=== PATIENT | male | born 1970 | race Caucasian/White ===

== ENCOUNTER 2016-10-06 15:10 | Inpatient (IN) | payer OTHER ==
[~2016-10-06] VITALS: Ht 175.3 cm; Wt 77.1 kg
[2016-10-06] VITALS (15 sets, daily range): BP systolic 121–170; BP diastolic 75–106
--- NOTE | 2016-10-06 17:19 | EKG ---
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
[2016-10-06] MEDS ORDERED: hydrALAZINE 20 MG/ML VIAL. IVP PRN (17:30)
[2016-10-06] MEDS ORDERED: ONDANSETRON PF 4 MG/2 ML VIAL. IV PRN (17:30)
[2016-10-06] MEDS ORDERED: ALBUTEROL SULFATE 2.5 MG/3 ML NEBU. NEB PRN (17:30)
[2016-10-06] MEDS ORDERED: ACETAMINOPHEN 325 MG TABLET. PO PRN (17:30)
[2016-10-06] MEDS ORDERED: MORPHINE SULFATE 2 MG/ML DISP.SYRIN. IV ONE (17:30)
--- NOTE | 2016-10-06 17:41 | PDOC1 ---
History and Physical Past Medical History Cardiovascular: CAD, HTN GI: GERD Past Surgical History Past Surgical History: CABG (2015) Family History Family History: Other (CAD) Social History Smoke: No ALCOHOL: rare Current Medications Current Medications Current Medications Medications (Trade) Dose Ordered Sig/Melinda Start Time Stop Time Status Last Admin Dose Admin Acetaminophen (Tylenol) 325 mg PRN Q6HRS PRN 10/06/16 17:30 Acetaminophen/ Hydrocodone Bitart (Lortab 5/325) 1 tab PRN Q6HRS PRN 10/06/16 17:30 Albuterol Sulfate (Ventolin Neb Soln) 2.5 mg PRN Q4HRS PRN 10/06/16 17:30 Hydralazine HCl (Apresoline) 10 mg PRN Q4HRS PRN 10/06/16 17:30 Morphine Sulfate 2 mg PRN Q2HR PRN 10/06/16 17:45 Nitroglycerin (Nitrostat) 0.4 mg PRN Q5MIN PRN 10/06/16 17:45 Ondansetron HCl (Zofran) 4 mg PRN Q8HRS PRN 10/06/16 17:30 Allergies Allergies Allergies Coded Allergies Type Severity Reaction Last Updated Verified Penicillins Allergy Intermediate 10/06/16 Yes ROS Review of System CONSTITUTIONAL: No fever or chills EYES: No recent changes SKIN: No rash or itching CARDIOVASCULAR: chest pain, NO syncope, palpitations, or edema RESPIRATORY: No SOB or cough GASTROINTESTINAL: No nausea, vomiting or abdominal pain NEUROLOGICAL: No headaches or weakness ENDOCRINE: No cold or heat intolerance GENITOURINARY: No urgency or frequency of urination MUSCULOSKELETAL: No back pain or joint pain LYMPHATICS: No enlarged lymph nodes PSYCHIATRIC: No anxiety or depression Physical Exam Physical Exam GEN.: No apparent distress. Alert and oriented. HEENT: Head is normocephalic, atraumatic NECK: Supple. NO JVD LUNGS: Clear to auscultation. Normal airflow HEART: RRR, S1, S2 present. Peripheral pulses intact ABDOMEN: Soft, nontender. Positive bowel sounds. EXTREMITIES: Without any cyanosis. NEUROLOGIC: Normal speech, normal tone PSYCHIATRIC: Normal affect, normal mood. SKIN: No ulcerations Vitals Vitals Vital Signs Date Time Temp Pulse Resp B/P Pulse Ox O2 Delivery O2 Flow Rate FiO2 10/06/16 17:30 20 97 Room Air VTE Prophylaxis Ordered VTE Prophylaxis Devices: Yes VTE Pharmacological Prophylaxi: Yes NIKKI LIVE MD Oct 06, 2016 17:40
[2016-10-06] MEDS ORDERED: NITROGLYCERIN SUBLINGUAL 0.4 MG BOTTLE OF 25. SL PRN (17:45)
[2016-10-06] MEDS ORDERED: MORPHINE SULFATE 2 MG/ML DISP.SYRIN. IV PRN (17:45)
[2016-10-06] MEDS ORDERED: PRASUGREL 10 MG TABLET. PO ONE (19:15)
[2016-10-06] MEDS ORDERED: NITROGLYCERIN PREMIX 250 ML IV PRN (19:15)
--- NOTE | 2016-10-06 19:41 | HP ---
ADMIT DATE: 10/06/2016 CHIEF COMPLAINT: Chest pain. HISTORY OF PRESENT ILLNESS: A 46-year-old male patient with prior history of coronary artery disease 2003 and CABG August 2016 presented to [facility] with complaints of chest pain, noted this morning around 10:30 a.m., described it as left upper extremity pain and presented there for constantly and is getting better with nitro and also with morphine. After CABG surgery in August, the patient felt pretty good and denies any symptoms. Symptoms noted at rest. Initial EKG at [facility] showed some T-wave inversions in lateral leads; however, I could not able to confirm and repeat EKG at [place] showed T-wave inversions in lateral leads, in aVF, in lead 2. At the time of my examination, the patient says he still feels some pain, but is getting better with morphine and denies any other symptoms such as palpitations or shortness of breath. PAST MEDICAL HISTORY, REVIEW OF SYSTEMS, PHYSICAL EXAMINATION: Please see my electronic H and P. ASSESSMENT: 1. Unstable angina, present on admission 2. Coronary artery disease with CABG x 2015. 3. Hypertension. 4. Hyperlipidemia. 5. Gastroesophageal reflux disease. 6. Questionable depression. PLAN: 1. The patient currently admitted to critical care unit. He already received Lovenox in [place] [facility]. I am waiting for his second set of troponins and will consult cardiology and start him on either heparin gtt for ACS protocol or take him to cardiac catheterization. Repeat EKG reviewed personally, review showed some T-wave inversions in lateral leads and inferior leads. 2. Resume home medications. 3. Telemetry. 4. Blood pressure control. 5. P.r.n. morphine for pain control with p.r.n. nitro. 6. Plan d/w RN, 7. Home medication reviewed. NIKKI LIVE MD DR: TRINIDAD/gemma JOB#: [id number] / [id number] CHRISTINA
[2016-10-07] VITALS (29 sets, daily range): BP systolic 98–151; BP diastolic 8–89
[2016-10-07 03:48] LABS: BASO % 1 % (0-3); EOS % 2 % (0-3); HEMATOCRIT 34.5 % (39.0-53.0); HEMOGLOBIN 11.7 g/dL (13.0-17.5); LYMPH # 1.7 x10^3/uL (1.0-4.8); LYMPH % 25 % (24-48); MEAN CORPUSCULAR HEMOGLOBIN 31 pg (25-35); MEAN CORPUSCULAR HGB CONC 34 g/dL (31-37); MEAN CORPUSCULAR VOLUME 92 fL (79-100); MONO % 9 % (0-9); NEUT % 64 % (31-73); PLATELET COUNT 209 x10^3/uL (140-400); RED BLOOD COUNT 3.76 x10^6/uL (4.30-5.70); RED CELL DISTRIBUTION WIDTH 13.7 % (11.5-14.5); WHITE BLOOD COUNT 6.9 x10^3/uL (4.0-11.0)
[2016-10-07 04:11] LABS: CALCIUM 8.8 mg/dL (8.5-10.1); CREATININE 1.1 mg/dL (0.7-1.3); GFR 72.4; POTASSIUM 3.9 mmol/L (3.5-5.1)
[2016-10-07] MEDS ORDERED: IODIXANOL 320 MG/ML 100 ML VIAL. ONE ×2 (07:20→08:50)
[2016-10-07] MEDS ORDERED: LIDOCAINE 2% 20 ML VIAL. ONE (07:20)
[2016-10-07] MEDS ORDERED: HEPARIN for ARTERIAL LINE 1,500 ML ONE (07:20)
--- NOTE | 2016-10-07 07:38 | ACF ---
Admission Forms Criteria INTENSIVE CARE UNIT ADMISSION Intensive Care Admission Guidelines ( Place 'X' for any and all applicable criteria): Admission to ICU may be indicated when need is demonstrated by ANY ONE of the following (1)(2)(3)(4)(5)(6)(7)(8)(9) : [ ]I. Vital sign abnormalities, including ANY ONE of the following: [ ]a) Systolic arterial pressure less than 90 mm Hg, or 20 mm Hg below the patient's usual pressure [ ]b) Diastolic arterial pressure greater than 120 mm Hg [ ]c) Mean arterial pressure less than 70 mm Hg [A] [ ]d) Pulse less than 40 or greater than 140 beats per minute (in adult) [ ]e) Respiratory rate greater than 35 or less than 8 breaths per minute [ ]II. Laboratory findings (new), including ANY ONE of the following (10): [ ]a) Saturation of arterial oxygen less than 88% or partial pressure of oxygen less than 60 mm Hg (8.0 kPa) despite oxygen supplementation [ ]b) Rising partial pressure of carbon dioxide with respiratory acidosis [ ]c) pH less than 7.2 or greater than 7.65 [ ]d) Serum glucose greater than 800 mg/dL (44.4 mmol/L) [ ]e) Serum sodium less than 110 mEq/L (mmol/L) or greater than 160 mEq/L (mmol/L) [ ]f) Serum potassium less than 2 mEq/L (mmol/L) or greater than 7 mEq /L (mmol/L) [ ]g) Serum calcium greater than 15 mg/dL (3.75 mmol/L) [ ]h) Serum phosphorus less than 1 mg/dL (0.32 mmol/L) [ ]i) Toxic drug level or poisoning causing or likely to cause neurologic or Hemodynamic instability [ ]j) Less severe laboratory abnormalities contributing to ANY ONE of the following: [ ]i) Seizure [ ]ii) Altered mental status [ ]iii) Muscle weakness [ ]iv) Arrhythmias [ ]v) Hemodynamic instability [ ]vi) Other significant clinical manifestations [X]III. Electrocardiogram (or cardiac monitoring) findings, including ANY ONE of the following: [ ]a) Inherently unstable or life-threatening arrhythmia (eg, sustained ventricular tachycardia, ventricular fibrillation, asystole) [ ]b) Arrhythmia causing severe hypotension (eg, bradycardia, tachycardia) [ ]c) Complete heart block causing severe hypotension [X]d) Other findings indicative of a need for intensive care (eg , NH) [ ]IV.Physical findings, including ANY ONE of the following: [ ]a) Threatened airway [ ]b) Sudden altered mental status [ ]c) Repeated or prolonged seizures [ ]d) Coma [ ]e) New-onset anuria (urine output <0.1 mL/kg/hr over 4 h) [ ]f) Cyanosis (new) [ ]g) Cardiac tamponade [ ]h) Status post respiratory or cardiac arrest [ ]i) Severe amador (eg, partial thickness amador over more than 10% of body surface, third-degree amador) [ ]j) Findings consistent with abdominal emergency (eg, peritoneal signs) [ ]V.Imaging findings, such as dissecting aneurysm or ruptured viscus [ ].Specific intervention or monitoring needed, as indicated by ANY ONE of the following: [ ]a) New need for assisted ventilation, invasive or noninvasive(11) [ ]b) New need for intubation (eg, to protect airway) [ ]c) New tracheostomy (less than 48 hours old) [ ]d) Hourly vital signs or neurologic checks [ ]e) Pulmonary artery line monitoring needed [ ]f) Continuous arterial line monitoring needed [ ]g) Continuous IV vasoactive drugs [ ]h) Continuous IV antiarrhythmics [ ]i) Large volume IV fluid resuscitation (eg, greater than 6 L per day ) [ ]j) Large or rapid transfusion needs (eg, more than 6 units within 24 hours) [ ]k) High-risk IV treatment, such as bolus IV medicatns or mannitol infusion [ ]l) Acute cardiac pacing [ ]m) Intra-aortic balloon pump [ ]n) Ventricular assist device [ ]o) Cardioversion [ ]p) Pericardiocentesis [ ]q) Hemodialysis in unstable patient [ ]r) Continuous renal replacement therapy (eg, continuous veno-venous hemofiltration) [ ]s) Peritoneal dialysis initiation [ ]t) Emergency bronchoscopic therapy (eg, for hemoptysis) [ ]u) Emergency endoscopic therapy for bleeding [ ]v) Balloon tamponade for variceal bleeding [ ]w) Intracranial pressure monitoring or tissue oxygen monitoring [ ]x) Ventriculostomy monitoring [ ]y) Treatment of ongoing seizures [ ]z) Induced hypothermia or coma [ ]aa) Ongoing frequent testing and treatment for acute conditions, including ANY ONE of the following: [ ]i) Correction of severe metabolic acidosis/ alkalosis [ ]ii). Severe fluid overload [ ]iii) Cerebral edema [ ]iv) Monitoring or suctioning for respiratory insufficiency or acidosis [ ]v) Monitoring for active bleeding [ ]bb) Rapid desensitization for high-risk hypersensitivity reaction to required medication (eg, penicillin)(12) [ ]cc) Other need for treatment or monitoring not available outside the ICU [ ]VII.Cardiology diagnoses or procedures, including ANY ONE of the following (13)(14)(15)(16)(17): [ ]a) Chest pain with ANY ONE of the following: [ ]i) Hemodynamic instability [ ]ii) Suspicion of diagnoses needing ICU care (eg, aortic dissection) [ ]iii) New unstable or symptomatic arrhythmia or ECG finding (eg, ventricular tachycardia, ventricular fibrillation, advanced heart block) [ ]iv) Syncope or near-syncope [ ]v) SBP less than 100 mm Hg [ ]vi) Pulmonary edema thought to be due to ischemia [ ]vii) New or worsening mitral regurgitation murmur, S3 , or rales [ ]b) Acute NH with complications as indicated by ANY ONE of the following: [ ]i) Persistent chest pain [ ]ii) Hemodynamic instability [ ]iii) New unstable or symptomatic arrhythmia or ECG finding (eg, ventricular tachycardia, ventricular fibrillation, advanced heart block) [ ]iv) Syncope or near-syncope [ ]v) Pulmonary edema thought to be due to ischemia [ ]vi) New or worsening mitral regurgitation murmur, S3 , or rales [ ]vii) New-onset bundle branch block [ ]viii) Hemorrhagic complication (eg, intracranial or access site bleed following thrombolysis) [ ]c) Cardiac arrhythmia or conduction defect with Hemodynamic instability [ ]d) Complication of cardiac ablation, including ANY ONE of the following(18): [ ]i) Pericardial tamponade [ ]ii) Hemodynamic instability [ ]iii) Thromboembolic stroke [ ]iv) Aortic valve injury [ ]v) Vascular injuries [ ]vi) Esophageal perforation [ ]vii) Severe arrhythmia [ ]viii) Air embolism [ ]ix) Other severe complication [ ]e) Cardiogenic shock [ ]f) Hypertensive emergency, with need for ANY ONE of the following(19): [ ]i) IV antihypertensive therapy [ ]ii) Invasive hemodynamic monitoring (eg, arterial line) [ ]g) Pericardial tamponade [ ]h) Severe heart failure, with ANY ONE of the following(15): [ ]i) Respiratory failure [ ]ii) Cardiogenic shock [ ]iii) Severe arrhythmias [ ]iv) Evidence of cardiac ischemia [ ]i Myocarditis, with ANY ONE of the following [ ]i) Hemodynamic instability [ ]ii) Respiratory failure [ ]iii) Severe arrhythmias [ ]iv) Need for cardiac assist device (eg, left ventricular assist device or extracorporeal membrane oxygenator) [ ]j) Status post cardiac arrest(20) [ ]VIII. Cardiovascular Surgery diagnoses or procedures, including ANY ONE of the following.(21)(22): [ ]a) Acute aortic dissection [ ]b) Aortic surgery for ANY ONE of the following: [ ]i) Thoracic aneurysm [ ]ii) Abdominal aneurysm with ANY ONE of the following(23): [ ]1) Emergency repair [ ]2) Severe cardiopulmonary disease [ ]3) Dialysis-dependent renal failure [ ]4) Need for IV blood pressure control [ ]5) Need for ongoing ventilatory support [ ]6) Perioperative complications, including ANY ONE of the following: [ ]A. Sustained Hemodynamic instability [ ]B. Cardiac ischemia or arrhythmia [ ]C. Hypothermia (less than 35 degrees C (95 degrees F)) [ ]D. Blood transfusion greater than 3 L [ ]iii) Aortic coarctation operative excision or repair [ ]iv) Aortofemoral or aortoiliac bypass with ANY ONE of the following: [ ]1) Continued intubation [ ]2) Hemodynamic instability [ ]3) Need for IV blood pressure control [ ]4) Severe cardiopulmonary disease [ ]c) Cardiac surgery [ ]d) Carotid endarterectomy or stent placement with ANY ONE of the following: [ ]i) Blood pressure <100/60 mm Hg or >160/90 mm Hg despite 4 h of postanesthetic management [ ]ii) New or progressive neurologic defect [ ]iii) Chest pain [ ]iv) Continued intubation [ ]v) Heart failure [ ]vi) Airway compromise by hematoma or vocal cord paralysis [ ]vi) Need for IV blood pressure control [ ]e) Heart transplant [ ]f) Infrainguinal peripheral vascular surgery with ANY ONE of the following: [ ]i) Hemodynamic instability [ ]ii) Acute complications such as persistent chest pain or respiratory distress [ ]iii) Requirement for IV antiarrhythmic or vasoactive agent [ ]iv) Requirement for pulmonary artery catheter [ ]v) Severe hypertension despite 6 hours of recovery room management [ ]g) Complications of any surgery requiring ICU intervention as indicated by ANY ONE of the following(24): [ ]i) Hemodynamic instability [ ]ii) Myocardial infarction with complications (eg, severe arrhythmia, hypotension) [ ]iii) Excessive bleeding or severe coagulopathy [ ]iv) Respiratory failure [ ]v) Renal failure [ ]vi) Airway instability or obstruction [ ]vii) Neurologic deterioration [ ]viii) Infection with likelihood of sepsis syndrome or significant fluid shifts [ ]IX.Endocrinology diagnoses or procedures, including ANY ONE of the following(25)(26): [ ]a) Adrenal crisis with Hemodynamic instability(27) [ ]b) Pheochromocytoma with ANY ONE of the following(28): [ ]i) Hypertensive crisis [ ]ii) Postoperative Hemodynamic instability [ ]iii) Need for IV vasoactive therapy [ ]iv) Need for invasive arterial or central venous pressure monitoring [ ]v) Organ ischemia [ ]c) Diabetic hyperosmolar state with obtundation or coma [ ]d) Diabetic ketoacidosis with ANY ONE of the following: [ ]i) Serum pH less than 7.10 or bicarbonate level less than 10 mEq/L (mmol/L) [ ]ii) Rapidly changing electrolytes [ ]iii) Hypotension [ ]iv) Requirement for large-volume fluid resuscitation [ ]v) Respiratory insufficiency [ ]vi) Life-threatening cardiac dysrhythmias [ ]vii) Obtundation [ ]viii) Severe precipitating condition such as sepsis, stroke, or acute NH [ ]e) Severe hypoglycemia requiring continuous glucose infusion with frequent adjustment or glucagon infusion [ ]f) Hyperthyroidism associated with thyroid storm (also known as thyrotoxic crisis)(29) [ ]g) Myxedema with life-threatening neurologic, cardiovascular, electrolyte, or renal dysfunction(29) [ ]h) Diabetes insipidus that cannot be controlled with routine medication (30) [ ]X. Gastroenterology diagnoses or procedures, including ANY ONE of the following: [ ]a) Esophageal perforation(31) [ ]b) Severe caustic esophageal injury(31) [ ]c) Liver disease complications with ANY ONE of the following(32): [ ]i) Severe hepatic encephalopathy (eg, stage 3 (somnolent) or higher) [ ]ii) Type 1 hepatorenal syndrome [ ]iii) Other cirrhosis-associated causes of acute renal failure ( eg, severe hypovolemia, acute tubular necrosis, abdominal compartment syndrome) [ ]iv) Hemodynamic instability [ ]v) Respiratory insufficiency due to severe ascites [ ]vi) Sepsis due to spontaneous bacterial peritonitis [ ]d) Fulminant hepatic failure when aggressive intervention or transplant is anticipated (32) [ ]e) Gastrointestinal hemorrhage (upper or lower) with ANY ONE of the following(33)(34): [ ]i) Active ongoing bleeding [ ]ii) Transfusion requirement greater than 2 units of packed red cells [ ]iii) Bleeding ulcer or nonbleeding visible vessel seen on endoscopy [ ]iv) Bleeding ulcer, visible blood vessel, bleeding (or recently bleeding) esophageal varices seen on endoscopy [ ]v) Hypotension [ ]vi) Syncope [ ]vii) Coagulopathy [ ]viii) Hepatic cirrhosis [ ]ix) Abnormal mental status [ ]x) Unstable comorbid condition or end organ dysfunction [ ]xi) Ischemia due to poor perfusion [ ]xii) Need for hemodynamic monitoring (eg, for patients with heart failure or valvular disease) [ ]f) Severe pancreatitis indicated by ANY ONE of the following (35)(36): [ ]i) Requirement for aggressive fluid resuscitation [ ]ii) Life-threatening electrolyte abnormality [ ]iii) SBP less than 90 mm Hg [ ]iv) Persistent tachycardia greater than 120 beats per minute [ ]v) Patients at high risk of rapid deterioration, including ANY ONE of the following: [ ]1) Calculated [place] II score greater than 8 [ ]2) Age older than 55 years [ ]3) BMI greater than 30 [ ]4) Greater than 30% pancreatic necrosis on CT scan [ ]5) Admission hematocrit greater than 47% (0.47) [ ]vi) Organ failure as indicated by ANY ONE of the following: [ ]1) Serum creatinine greater than 1.9 mg/dL (168 micromoles/L) [ ]2) Requirement for mechanical ventilation [ ]3) Urine output less than 50 mL/hour [ ]4) Arterial partial pressure of oxygen less than 60 mm Hg (8.0 kPa) despite supplemental oxygen [ ]5) PiO2/FiO2 ratio less than 300 [ ]vii) Expanding pseudocyst [ ]viii) Infected pancreas [ ]ix) Pleural effusion [ ]x) Encephalopathy [ ]xi) Severe comorbidities [ ]XI. General Surgery diagnoses or procedures, including ANY ONE of the following (9)(24)(37): [ ]a) Acute abdominal catastrophe (eg, ischemic bowel, perforated viscus, abdominal compartment syndrome) [ ]b) Complications of any surgery requiring ICU intervention as indicated by ANY ONE of the following: [ ]i) Hemodynamic instability [ ]ii) NH with complications (eg, severe arrhythmia, hypotension) [ ]iii) Excessive bleeding or severe coagulopathy [ ]iv) Respiratory failure [ ]v) Renal failure [ ]vi) Airway instability or obstruction [ ]vii) Neurologic deterioration [ ]viii) Infection with likelihood of sepsis syndrome or significant fluid shifts [ ]c) Multiple trauma with complicating features as indicated by ANY ONE of the following(38): [ ]i) Impending acute respiratory failure due to lung contusion, unstable chest wall, aspiration, or hemorrhage [ ]ii) Facial or neck injury threatening airway patency [ ]iii) Cardiac contusion [ ]iv) Pericardial effusion [ ]v) Bronchial tear [ ]vi) Hemodynamic instability [ ]vii) Rhabdomyolisis requiring large volume IV fluid resuscitation [ ]viii)Other significant complicating feature [ ]d) Organ transplant(39)(40) [ ]e) Esophagectomy(31) [ ]f) Whipple procedure [ ]g) Preoperative or postoperative patients requiring ICU intervention, such as hemodynamic optimization, pulmonary artery monitoring, mechanical ventilation, or extensive nursing care [ ]h) Obesity surgery patients with ANY ONE of the following(41): [ ]i) ICU management needs for comorbid conditions, such as sleep apnea or airway management needs [ ]ii) Failed postoperative extubation [ ]iii) Intraoperative complications [ ]XII. Nephrology diagnoses or procedures, including acute, or acute on chronic renal insufficiency with ANY ONE of the following(44)(45): [ ]a) Life-threatening electrolyte or acid-base disorder [ ]b) Acute pulmonary edema [ ]c) Hypotension or significant volume depletion [ ]d) Hypertensive emergency [ ]e) Underlying critical illness contributing to renal failure (eg, septic shock, hepatorenal syndrome) [ ]f) Need for continuous renal replacement therapy [ ]XIII. Neurology diagnoses or procedures, including ANY ONE of the following (46)(47) [B] : [ ]a) Intracranial hypertension requiring ANY ONE of the following(49 ): [ ]i) Induced barbiturate coma [ ]ii) Pharmacologic paralysis or deep sedation and mechanical ventilation [ ]iii) Intracranial pressure or cerebral perfusion pressure monitoring [ ]iv) IV mannitol or hypertonic saline [ ]v) Frequent serum osmolality measurements [ ]b) Seizures with ANY ONE of the following(50): [ ]i) Status epilepticus [ ]ii) Airway compromise requiring or likely to require mechanical ventilation [ ]iii) Severe electrolyte abnormalities causing seizures [ ]c) Progressive acute neurologic dysfunction requiring or likely to require ANY ONE of the following: [ ]i) Mechanical ventilation [ ]ii) Intracranial pressure or cerebral perfusion pressure monitoring [ ]d) Meningitis with obtundation or respiratory insufficiency [C])(51 ) [ ]e) Stroke with ANY ONE of the following(52)(53): [ ]i) Need for observation after thrombolysis [ ]ii) Altered mental status [ ]iii) Need for mechanical ventilation [ ]iv) Elevated intracranial pressure [ ]v) Hypertensive emergency [ ]vi) High risk of progressive infarction or deterioration based on CT scan or MRI [ ]vii) Hemorrhage [ ]f) Acute coma [ ]g) Acute spontaneous intracranial hemorrhage(53)(54) [ ]h) Drug ingestion with ANY ONE of the following(56)(57): [ ]i) Hemodynamic instability [ ]ii) Respiratory depression (partial pressure of carbon dioxide >45 mm Hg (6.0 kPa), new) [ ]iii) Patient requires or is likely to require mechanical ventilation. [ ]iv) Arrhythmias [ ]v) Seizures [ ]vi) Altered mental status (Mona coma scale score less than 12, new) [ ]vii) Significant risk for acute deterioration (eg, toxic level of hypotension or arrhythmia-producing drug) [ ]viii) Drug-induced hypothermia or hyperthermia [ ]ix) Increasing metabolic acidosis [ ]x) Severe hypoglycemia requiring glucose infusion with frequent adjustment or glucagon administration [ ]xi) Ongoing antidote administration (eg, continuous naloxone infusion, organophosphate toxicity treatment) [ ]xii) Emergency intervention need (eg, dialysis, hemoperfusion, restraints) [ ]i) Brain with preparation for organ donation [ ]j) Traumatic brain injury with ANY ONE of the following(55): [ ]i) Altered mental status (eg, new onset Lucy coma scale score less than 10) [ ]ii) Cerebral edema [ ]iii) Cerebral hemorrhage [ ]iv) Increased intracranial pressure [ ]XIV. Neurosurgery diagnoses or procedures, including ANY ONE of the following(49)(58)(59): [ ]a) Emergency craniotomy for tumor, hematoma, or trauma [ ]b) Elective craniotomy for posterior fossa tumor [ ]c) Elective craniotomy (supratentorial) for tumor with ANY ONE of the following: [ ]i) Postoperative neurologic deficit or impaired consciousness 6 hours after completion of procedure [ ]ii) SBP less than 110 mm Hg or greater than 180 mm Hg despite therapy [ ]iii) Extensive operative blood loss [ ]iv) High anesthesia risk (eg, [place] [employer] score greater than 3 [ ]d) Craniotomy for aneurysm with ANY ONE of the following: [ ]i) Postoperative neurologic deficit or impaired consciousness 6 hours after completion of procedure [ ]ii) Preoperative Levy-Sanchez grade 3 or higher [ ]iii) SBP less than 110 mm Hg or greater than 180 mm Hg despite therapy [ ]iv) Intracranial pressure monitoring [ ]e) Acute spinal cord injury [ ]f) Subarachnoid hemorrhage [ ]g) Traumatic brain injury with ANY ONE of the following: [ ]i) Acute mental status change (Lucy coma scale score less than 10) [ ]ii) CT scan showing cerebral edema or hemorrhage [ ]iii) Intracranial pressure monitoring [ ]h) Complications of any surgery requiring ICU intervention as indicated by ANY ONE of the following(60): [ ]i) Hemodynamic instability [ ]ii) NH with complications (eg, severe arrhythmia, hypotension) [ ]iii) Excessive bleeding or severe coagulopathy [ ]iv) Respiratory failure [ ] v) Renal failure [ ]vi) Airway instability or obstruction [ ]vii) Neurologic deterioration [ ]viii) Infection with likelihood of sepsis syndrome or significant fluid shifts [ ]i) Preoperative or postoperative patients requiring ICU intervention, such as hemodynamic optimization, pulmonary artery monitoring, mechanical ventilation, or extensive nursing care [ ]XV.Obstetrics and Gynecology diagnoses or procedures, including ANY ONE of the ffg. (61)(62)(63): [ ]a) Severe peripartum condition as indicated by ANY ONE of the following: [ ]i) Eclampsia [ ]ii) Hypertensive emergency [ ]iii) HELLP syndrome (hemolysis, elevated liver enzymes, and low platelet count) [ ]iv) Pulmonary edema [ ]v) Respiratory failure [ ]vi) Pulmonary embolism [ ]vii) Anaphylactoid syndrome of (amniotic fluid embolus) [ ]viii) Ovarian hyperstimulation syndrome [D] [ ]ix) Acute fatty liver of (hepatic failure) [ ]x) Complications such as placental abruption or severe hemorrhage [ ]xi) Sepsis (eg, puerperal sepsis, chorioamnionitis, septic ) [ ]xii) cardiomyopathy with severe congestive heart failure (eg, respiratory failure, cardiogenic shock) [ ]b) Ruptured ectopic [ ]c) Complications of any surgery requiring ICU intervention as indicated by ANY ONE of the following: [ ]i) Hemodynamic instability [ ]ii) NH with complications (eg, severe arrhythmia, hypotension) [ ]iii) Excessive bleeding or severe coagulopathy [ ]iv) Respiratory failure [ ]v) Renal failure [ ]vi) Airway instability or obstruction [ ]vii) Neurologic deterioration [ ]viii) Infection with likelihood of sepsis syndrome or significant fluid shifts [ ]d) Preoperative or postoperative patients requiring ICU intervention , such as hemodynamic optimization, pulmonary artery monitoring, mechanical ventilation, or extensive nursing care [ ]XVI.Ophthalmology diagnoses or procedures, including ANY ONE of the following (64): [ ]a) Complications of any surgery requiring ICU intervention, such as ANY ONE of the following: [ ]i) Hemodynamic instability [ ]ii) NH with complications (eg, severe arrhythmia, hypotension) [ ]iii) Excessive bleeding or severe coagulopathy [ ]iv) Respiratory failure [ ]v) Renal failure [ ]vi) Airway instability or obstruction [ ]vii) Neurologic deterioration [ ]viii) Infection with likelihood of sepsis syndrome or significant fluid shifts [ ]b) Preoperative or postoperative patients requiring ICU intervention , such as hemodynamic optimization, pulmonary artery monitoring, mechanical ventilation, or extensive nursing care [ ]XVII.Orthopedics diagnoses or procedures, including ANY ONE of the following [phone]): [ ]a) Complications of any surgery requiring ICU intervention as indicated by ANY ONE of the following: [ ]i) Hemodynamic instability [ ]ii) NH with complications (eg, severe arrhythmia, hypotension) [ ]iii) Excessive bleeding or severe coagulopathy [ ]iv) Respiratory failure [ ]v) Renal failure [ ]vi) Airway instability or obstruction [ ] vii) Neurologic deterioration [ ]viii) Infection with likelihood of sepsis syndrome or significant fluid shifts [ ]b) Multiple trauma with complicating features as indicated by ANY ONE of the following(38): [ ]i) Impending acute respiratory failure due to lung contusion, unstable chest wall, pneumothorax, aspiration, or hemorrhage [ ]ii) Facial or neck injury threatening airway patency [ ]iii) Cardiac contusion [ ]iv) Rhabdomyolysis requiring large volume IV fluid resuscitation [ ]v) Pericardial effusion [ ]vi) Bronchial tear [ ]vii) Hemodynamic instability [ ]viii) Other significant complicating feature [ ]c) Threatened compartment syndrome [ ]d) Severe amador with ANY ONE of the following(68)(69)(70): [ ]i) Hypotension or requirement for aggressive fluid resuscitation [ ]ii) Respiratory insufficiency with requirement for high- flow oxygen or mechanical ventilation [ ]iii) Carbon monoxide poisoning [ ]iv) Life-threatening cardiac, renal, pulmonary, or neurologic dysfunction [ ]v) High-voltage (eg, 1000 volts or more) electrical burn [ ]vi) Requirement for frequent or intensive debridement and dressing changes; examples include: [ ]1) Partial thickness amador greater than 10% of body surface [ ]2) Amador on face, hands, feet, genitalia, perineum , or major joints [ ]3) Third-degree amador [ ]4) Any burn greater than 15% of body surface area [ ]vii) Inhalation lung injury [ ]viii) Concomitant trauma or other medical condition requiring ICU care [ ]e) Preoperative or postoperative patients requiring ICU intervention , such as hemodynamic optimization, pulmonary artery monitoring, mechanical ventilation, or extensive nursing care [ ]XVIII.Otolaryngology diagnoses or procedures, including ANY ONE of the following (71)(72): [ ]a) Complications of any surgery requiring ICU intervention as indicated by ANY ONE of the following: [ ]i) Hemodynamic instability [ ]ii) NH with complications (eg, severe arrhythmia, hypotension) [ ]iii) Excessive bleeding or severe coagulopathy [ ]iv) Respiratory failure [ ]v) Renal failure [ ]vi) Airway instability or obstruction [ ]vii) Neurologic deterioration [ ]viii) Infection with likelihood of sepsis syndrome or significant fluid shifts [ ]b) Airway or hemodynamic compromise that persists after 3 hours of observation in postanesthesia care unit following nasal, palate (eg, uvulopalatopharyngoplasty or palatoplasty), or tongue surgery for sleep apnea [ ]c) Preoperative or postoperative patient requiring ICU intervention, such as hemodynamic optimization, pulmonary artery monitoring, mechanical ventilation, or extensive nursing care [ ]d) Symptomatic upper airway compromise (eg, laryngeal edema, mass) [ ]e) Other airway-compromising procedure (eg, posterior nasal packing) [ ]XIX.Thoracic Surgery and Pulmonary Disease Diagnosis or procedures, including ANY ONE of the following(6): [ ]a) Asthma with ANY ONE of the following(73)(74): [ ]i) Impending or actual respiratory arrest [ ]ii) Need for mechanical ventilation [ ]iii) Peak expiratory flow rate less than 30% of predicted or personal best [ ]iv) Peak expiratory flow rate or FEV1 less than 40% predicted after 1 hour of initial treatment [ ]v) Acidosis [ ]vi) Persistent or worsening hypoxia after initial treatment [ ]vii) Hypercapnia (eg, partial pressure of carbon dioxide greater than 43 mm Hg (5.7 kPa)) [ ]viii) Severe drowsiness, confusion, or coma [ ]ix) Requiring continuous inhaled bronchodilator [ ]b) COPD with ANY ONE of the following(75): [ ]i) Need for assisted ventilation [ ]ii) Hemodynamic instability [ ]iii) Severe dyspnea unresponsive to initial treatment [ ]iv) Change in level of consciousness [ ]v) Persistent findings despite oxygen and outpatient management, including ANY ONE of the following: [ ]1) Partial pressure of oxygen less than 40 mm Hg ( 5.3 kPa) [ ]2) Partial pressure of carbon dioxide greater than 60 mm Hg (8.0 kPa) [ ]3) pH less than 7.25 [ ]4) Worsening hypoxemia or acidosis [ ]c) Cor pulmonale with ANY ONE of the following(75)(76)(77): [ ]i) Hemodynamic instability [ ]ii) Need for IV inotropic or vasoactive agent [ ]iii) Need for invasive hemodynamic monitoring (eg, central venous, pulmonary artery, or arterial catheter) [ ]iv) Hypoxemia with partial pressure of oxygen less than 40 mm Hg (5.3 kPa) [ ]v) Worsening hypoxemia or acidosis despite oxygen therapy [ ]vi) Need for assisted ventilation [ ]vii) Need for right ventricular assist device [ ]viii) Unstable atrial tachyarrhythmia [ ]ix) Need for inhaled nitric oxide [ ]d) Aspiration pneumonia with ANY ONE of the following(78): [ ]i) Acute respiratory distress syndrome (PaO2/FiO2 ratio of 300 or less) [ ]ii) Impending or actual respiratory arrest [ ]iii) Need for invasive or noninvasive mechanical ventilation [ ]e) Pneumocystis jiroveci pneumonia with ANY ONE of the following(79): [ ]i) Impending or actual respiratory arrest [ ]ii) Hypoxia (eg, PO260 mmGh (8.0 kPa) or less despite oxygen therapy) [ ]iii) Need for invasive or noninvasive mechanical ventilation [ ]f) Pneumonia with ANY ONE of the following(80)(81)(82): [ ]i) Need for invasive or noninvasive assisted ventilation [ ]ii) Hemodynamic instability [ ]iii) Severity factors as indicated by 3 or MORE of the following: [ ]1) Respiratory rate 30 breaths per minute or greater [ ]2) PaO2/FiO2 ratio of 250 or less [ ]3) Multilobed infiltrates [ ]4) Altered mental status [ ]5) BUN 20 mg/dL (7.1 mmol/L) or greater [ ]6) WBC count less than 4000/mm3 (4 x109/L) [ ]7) Platelet count <100,000/mm3 (100 x109/L) [ ]8) Temperature less than 36 degrees C (96.8 degrees F ) [ ]9) Hypotension requiring aggressive fluid resuscitation [ ]g) Pulmonary hypertension requiring initiation of parenteral pulmonary vasodilator or trial of inhaled nitric oxide (eg, need for right heart catheterization)(76) [ ]h) Impending respiratory failure as indicated by ANY ONE of the following: [ ]i) Respiratory rate greater than 30 or partial pressure of oxygen less than 60 mm Hg (8.0 kPa) on 50% oxygen or more [ ]ii) Partial pressure of carbon dioxide greater than 45 mm Hg (6.0 kPa) with pH less than 7.35 [ ]i) Respiratory failure with ANY ONE of the following (47): [ ]i) Need for invasive or noninvasive mechanical ventilation [ ]ii) High likelihood of requiring mechanical ventilation within 24 hours [ ]iii) Observation in the first several hours immediately after extubation from mechanical ventilation [ ]iv) Need for close observation and aggressive therapy, such as suctioning, chest physiotherapy, or inhalation treatments at intervals less than 1 hour [ ]v) Pharmacologic ventilatory paralysis [ ]j) Venous thromboembolism with need for systemic or catheter- directed thrombolysis (eg, for limb-threatening thrombosis, phlegmasia cerulea dolens) (83) [ ]k) Pulmonary embolus with ANY ONE of the following(83): [ ]i) Hypotension [ ]ii) Severe hypoxia [ ]iii) Dangerous arrhythmia [ ]iv) Bleeding [ ]v) Need for systemic or catheter-directed thrombolysis [ ]l) Lobectomy or other major thoracic surgery [ ]m) Lung transplant [ ]n) Symptomatic upper airway obstruction (eg, laryngeal edema, mass) [ ]o) Massive hemoptysis [ ]p) Infection or thrombosis of an intravenous device with ANY ONE of the following(6)(84): [ ]i) Hemodynamic instability [ ]ii) Requirement for frequent hemodynamic measurements [ ]iii) Shock [ ]iv) End organ dysfunction [ ] v) Acute renal failure due to missed dialysis [ ]vi) Unstable acute complication (eg, pericardial tamponade , tension pneumothorax) [ ]q) Traumatic rib fracture or fractures with ANY ONE of the following(85): [ ]i) Injury severity score of 19 or greater [ ]ii) Respiratory insufficiency [ ]iii) Flail chest [ ]iv) Sternum fracture [ ]v) Vascular injury (eg, heart or great vessels) [ ]r) Pleural effusion with ANY ONE of the following(86): [ ]i) Respiratory insufficiency [ ]ii) Hemothorax with active ongoing bleeding [ ]iii) Hemodynamic instability [ ]iv) Unstable comorbid condition (eg, sepsis or heart failure [ ]XX. Urology diagnoses or procedures, including ANY ONE of the following ( 87)(88): [ ]a) Renal transplant [ ]b) Complications of any surgery requiring ICU intervention as indicated by ANY ONE of the following: [ ]i) Hemodynamic instability [ ]ii) NH with complications (eg, severe arrhythmia, hypotension) [ ]iii) Excessive bleeding or severe coagulopathy [ ]iv) Respiratory failure [ ]v) Renal failure [ ]vi) Airway instability or obstruction [ ]vii) Neurologic deterioration [ ]viii) Infection with likelihood of sepsis syndrome or significant fluid shifts [ ]c) Preoperative or postoperative patients requiring ICU intervention , such as hemodynamic optimization, pulmonary artery monitoring, mechanical ventilation , or extensive nursing care [ ]XXI.Infectious Disease diagnoses or procedures, with ANY ONE of the following (6)(43): [ ]a) Hemodynamic instability [ ]b) Shock [ ]c) Requirement for frequent hemodynamic measurements (eg, arterial catheter, pulmonary artery catheter) [ ]d) Sepsis or suspected sepsis with end organ dysfunction (eg, acute kidney injury, acute respiratory distress syndrome) [ ]e) Necrotizing soft tissue infection [ ] XXII.Hematology - Oncology diagnoses or procedures, including chemotherapy administration with ANY ONE of the following(42): [ ]a) Hemodynamic instability [ ]b) Tumor lysis syndrome with ANY ONE of the following : [ ]1) Acute kidney injury [ ]2) Severe electrolyte abnormality [ ]3) Cardiac dysrhythmia [ ]XXIII. Systemic conditions, including ANY ONE of the following: [ ]a) Severe electrolyte or metabolic disturbance causing or likely to cause ANY ONE of the following(10)(89)(90): [ ]i) Life-threatening cardiac dysrhythmia [ ]ii) Respiratory insufficiency [ ]iii) Altered mental status [ ]iv) Seizures [ ]v) Hemodynamic instability [ ]vi) Muscular weakness [ ]b) Environmental injuries such as hypothermia, hyperthermia, electrical injuries, or near drowning(70)(91)(92) The original [facility] content created by [employer] has been revised. The portions of the content which have been revised are identified through the use of italic text or in bold, and [facility] has neither reviewed nor approved the modified material. All other unmodified content is copyright [facility]. Please see references footnoted in the original [facility] edition 2016 Admission Criteria Met?: Yes MIGNON BENAVIDEZ Oct 07, 2016 07:38
[2016-10-07] MEDS ORDERED: MIDAZOLAM HCL/PF 5 MG/5 ML VIAL ONE (08:20)
[2016-10-07] MEDS ORDERED: FENTANYL PF 250 MCG/5 ML VIAL. ONE (08:20)
[2016-10-07] MEDS ORDERED: NITROGLYCERIN 200 MCG/2 ML SYRINGE FOR CATH/VASC LAB. ONE ×2 (08:58→09:23)
[2016-10-07] MEDS ORDERED: BIVALIRUDIN 250 MG VIAL IV ONE ×2 (08:59→09:15)
[2016-10-07] MEDS ORDERED: MIDAZOLAM HCL/PF 5 MG/5 ML VIAL IV ONE (09:15)
[2016-10-07] MEDS ORDERED: IODIXANOL 320 MG/ML 100 ML VIAL. IART ONE (09:15)
[2016-10-07] MEDS ORDERED: FENTANYL PF 250 MCG/5 ML VIAL. IV ONE (09:15)
[2016-10-07] MEDS ORDERED: LIDOCAINE 2% 20 ML VIAL. IJ ONE (09:15)
[2016-10-07] MEDS ORDERED: NITROGLYCERIN 200 MCG/2 ML SYRINGE FOR CATH/VASC LAB. ICAR ONE (09:15)
[2016-10-07] MEDS ORDERED: PRASUGREL 10 MG TABLET. ONE (09:24)
[2016-10-07] MEDS ORDERED: PRASUGREL 10 MG TABLET. PO ONE (09:30)
[2016-10-07] MEDS ORDERED: CONTRAST GIVEN MC PRN (09:30)
[2016-10-07] MEDS ORDERED: PRAV40TA2 PO (11:47)
[2016-10-07] MEDS ORDERED: ASPI81TA50 PO (11:47)
[2016-10-07] MEDS ORDERED: ACET160S PO (11:47)
[2016-10-07] MEDS ORDERED: NITR0.4T6 SL (11:47)
[2016-10-07] MEDS ORDERED: OMEG500C PO (11:47)
[2016-10-07] MEDS ORDERED: IBUP-1007 PO (11:47)
[2016-10-07] MEDS ORDERED: DOCU-27 PO (11:47)
[2016-10-07] MEDS ORDERED: METO25TA4 PO (11:47)
[2016-10-07] MEDS ORDERED: OMEP20CA9 PO (11:47)
[2016-10-07] MEDS: METOPROLOL TART IMMED RELEASE 25 MG TABLET PO SCH ×2 (12:00→20:29)
[2016-10-07] MEDS ORDERED: ACETAMINOPHEN 325 MG TABLET. PO PRN (12:00)
[2016-10-07] MEDS ORDERED: ASPIRIN ENTERIC COATED 81 MG TABLET.DR. PO SCH (12:00)
[2016-10-07] MEDS: HYDROCODONE/APAP 5/325MG TABLET. PO PRN ×3 (12:16→23:09)
--- NOTE | 2016-10-07 13:15 | PDOC ---
PROGRESS NOTES Chief Complaint Chief Complaint Chief Complaint: - Unstable angina, s/p catheterization 10/07/16 - CAD with hx of CABG X4 in 08/2016 - Elevated troponin - HTN - Hyperlipidemia - GERD - Possible depression History of Present Illness History of Present Illness 46 year old male examined in ICU with nurse present at bedside. Patient was drowsy, having just returned from catheterization. Discussed findings with RN and patient. Patient denies chest pain currently. Reviewed labs , notes, VS Vitals Vitals Vital Signs Date Time Temp Pulse Resp B/P Pulse Ox O2 Delivery O2 Flow Rate FiO2 10/07/16 13:00 74 17 119/81 96 Room Air 10/07/16 12:16 2.0 10/07/16 12:00 98.6 98.6 Physical Exam General: Alert, Oriented X3, Cooperative, No acute distress Heart: Regular rate, Other (No rubs or gallops) Lungs: Clear, Other Abdomen: Normal bowel sounds, Soft, No tenderness Extremities: No clubbing, No cyanosis Skin: No rashes, No significant lesion Labs LABS Laboratory Tests Test 10/06/16 17:40 10/07/16 03:20 Troponin I Quantitative 2.718ng/mL (0.000-0.055) White Blood Count 6.9x10^3/uL (4.0-11.0) Red Blood Count 3.76x10^6/uL (4.30-5.70) Hemoglobin 11.7g/dL (13.0-17.5) Hematocrit 34.5% (39.0-53.0) Mean Corpuscular Volume 92fL (79-100) Mean Corpuscular Hemoglobin 31pg (25-35) Mean Corpuscular Hemoglobin Concent 34g/dL (31-37) Red Cell Distribution Width 13.7% (11.5-14.5) Platelet Count 209x10^3/uL (140-400) Neutrophils (%) (Auto) 64% (31-73) Lymphocytes (%) (Auto) 25% (24-48) Monocytes (%) (Auto) 9% (0-9) Eosinophils (%) (Auto) 2% (0-3) Basophils (%) (Auto) 1% (0-3) Neutrophils # (Auto) 4.4x10^3uL (1.8-7.7) Lymphocytes # (Auto) 1.7x10^3/uL (1.0-4.8) Monocytes # (Auto) 0.6x10^3/uL (0.0-1.1) Eosinophils # (Auto) 0.1x10^3/uL (0.0-0.7) Basophils # (Auto) 0.0x10^3/uL (0.0-0.2) Sodium Level 142mmol/L (136-145) Potassium Level 3.9mmol/L (3.5-5.1) Chloride Level 105mmol/L (98-107) Carbon Dioxide Level 28mmol/L (21-32) Anion Gap 9 (6-14) Blood Urea Nitrogen 15mg/dL (8-26) Creatinine 1.1mg/dL (0.7-1.3) Estimated GFR (Cockcroft-Gault) 72.4 Glucose Level 97mg/dL (70-99) Calcium Level 8.8mg/dL (8.5-10.1) Review of Systems Review of Systems Denies chest pain Denies SOB Denies nausea/vomiting Assessment and Plan Assessmemt and Plan Assessment: - Unstable angina, s/p catheterization 10/07/16 - CAD with hx of CABG X4 in 08/2016 - Elevated troponin - HTN - Hyperlipidemia - GERD - Possible depression Plan: - Discussed with RN - Awaiting records from prior facility where CABG was performed - Await further cardiology input - Continue pain control - Control blood pressure - Continue tele - PT/OT as tolerated - Recheck labs - Appreciate subspecialty input Total time 31 minutes Problems: Comment Review of Relevant I have reviewed the following items gilmer (where applicable) has been applied. Labs Laboratory Tests Test 10/06/16 17:40 10/07/16 03:20 Troponin I Quantitative 2.718ng/mL (0.000-0.055) White Blood Count 6.9x10^3/uL (4.0-11.0) Red Blood Count 3.76x10^6/uL (4.30-5.70) Hemoglobin 11.7g/dL (13.0-17.5) Hematocrit 34.5% (39.0-53.0) Mean Corpuscular Volume 92fL (79-100) Mean Corpuscular Hemoglobin 31pg (25-35) Mean Corpuscular Hemoglobin Concent 34g/dL (31-37) Red Cell Distribution Width 13.7% (11.5-14.5) Platelet Count 209x10^3/uL (140-400) Neutrophils (%) (Auto) 64% (31-73) Lymphocytes (%) (Auto) 25% (24-48) Monocytes (%) (Auto) 9% (0-9) Eosinophils (%) (Auto) 2% (0-3) Basophils (%) (Auto) 1% (0-3) Neutrophils # (Auto) 4.4x10^3uL (1.8-7.7) Lymphocytes # (Auto) 1.7x10^3/uL (1.0-4.8) Monocytes # (Auto) 0.6x10^3/uL (0.0-1.1) Eosinophils # (Auto) 0.1x10^3/uL (0.0-0.7) Basophils # (Auto) 0.0x10^3/uL (0.0-0.2) Sodium Level 142mmol/L (136-145) Potassium Level 3.9mmol/L (3.5-5.1) Chloride Level 105mmol/L (98-107) Carbon Dioxide Level 28mmol/L (21-32) Anion Gap 9 (6-14) Blood Urea Nitrogen 15mg/dL (8-26) Creatinine 1.1mg/dL (0.7-1.3) Estimated GFR (Cockcroft-Gault) 72.4 Glucose Level 97mg/dL (70-99) Calcium Level 8.8mg/dL (8.5-10.1) Laboratory Tests Test 10/06/16 17:40 10/07/16 03:20 Troponin I Quantitative 2.718ng/mL (0.000-0.055) White Blood Count 6.9x10^3/uL (4.0-11.0) Red Blood Count 3.76x10^6/uL (4.30-5.70) Hemoglobin 11.7g/dL (13.0-17.5) Hematocrit 34.5% (39.0-53.0) Mean Corpuscular Volume 92fL (79-100) Mean Corpuscular Hemoglobin 31pg (25-35) Mean Corpuscular Hemoglobin Concent 34g/dL (31-37) Red Cell Distribution Width 13.7% (11.5-14.5) Platelet Count 209x10^3/uL (140-400) Neutrophils (%) (Auto) 64% (31-73) Lymphocytes (%) (Auto) 25% (24-48) Monocytes (%) (Auto) 9% (0-9) Eosinophils (%) (Auto) 2% (0-3) Basophils (%) (Auto) 1% (0-3) Neutrophils # (Auto) 4.4x10^3uL (1.8-7.7) Lymphocytes # (Auto) 1.7x10^3/uL (1.0-4.8) Monocytes # (Auto) 0.6x10^3/uL (0.0-1.1) Eosinophils # (Auto) 0.1x10^3/uL (0.0-0.7) Basophils # (Auto) 0.0x10^3/uL (0.0-0.2) Sodium Level 142mmol/L (136-145) Potassium Level 3.9mmol/L (3.5-5.1) Chloride Level 105mmol/L (98-107) Carbon Dioxide Level 28mmol/L (21-32) Anion Gap 9 (6-14) Blood Urea Nitrogen 15mg/dL (8-26) Creatinine 1.1mg/dL (0.7-1.3) Estimated GFR (Cockcroft-Gault) 72.4 Glucose Level 97mg/dL (70-99) Calcium Level 8.8mg/dL (8.5-10.1) Medications Current Medications Morphine Sulfate 2 mg 1X ONCE IV Last administered on 10/06/16 17:30; Start 10/06/16 at 17:30; Stop 10/06/16 at 17:31; Status DC Acetaminophen (Tylenol) 325 mg PRN Q6HRS PRN PO MILD PAIN / TEMP; Start at 17:30 Acetaminophen/ Hydrocodone Bitart (Lortab 5/325) 1 tab PRN Q6HRS PRN PO MODERATE TO SEVERE PAIN Last administered on 10/07/16 12:16; Start 10/06/16 at 17:30 Hydralazine HCl (Apresoline) 10 mg PRN Q4HRS PRN IVP ELEVATED BP, SEE COMMENTS ; Start 10/06/16 at 17:30 Ondansetron HCl (Zofran) 4 mg PRN Q8HRS PRN IV NAUSEA/VOMITING; Start 10/06/16 at 17:30 Albuterol Sulfate (Ventolin Neb Soln) 2.5 mg PRN Q4HRS PRN NEB SHORTNESS OF BREATH; Start 10/06/16 at 17:30 Nitroglycerin (Nitrostat) 0.4 mg PRN Q5MIN PRN SL CHEST PAIN; Start 10/06/16 at 17:45 Morphine Sulfate 2 mg PRN Q2HR PRN IV PAIN Last administered on 10/07/16 02:28 ; Start 10/06/16 at 17:45 Prasugrel 60 mg 60 mg 1X ONCE PO Last administered on 10/06/16 19:53; Start 10/06/16 at 19:15; Stop 10/06/16 at 19:16; Status DC Nitroglycerin/ Dextrose 250 ml @ 0 mls/hr CONT PRN IV SEE I/O RECORD Last administered on 10/06/16 19:43; Start 10/06/16 at 19:15 Heparin Sodium/ Sodium Chloride 1,500 ml @ As Directed STK-MED ONCE .ROUTE ; Start 10/07/16 at 07:20; Stop 10/07/16 at 07:21; Status DC Lidocaine HCl 20 ml STK-MED ONCE .ROUTE ; Start 10/07/16 at 07:20; Stop at 07:21; Status DC Iodixanol (Visipaque 320) 100 ml STK-MED ONCE .ROUTE ; Start 10/07/16 at 07:20; Stop 10/07/16 at 07:21; Status DC Midazolam HCl (Versed) 5 mg STK-MED ONCE .ROUTE ; Start 10/07/16 at 08:20; Stop 10/07/16 at 08:21; Status DC Fentanyl Citrate (Fentanyl 5ml Vial) 250 mcg STK-MED ONCE .ROUTE ; Start at 08:20; Stop 10/07/16 at 08:21; Status DC Iodixanol (Visipaque 320) 100 ml STK-MED ONCE .ROUTE ; Start 10/07/16 at 08:50; Stop 10/07/16 at 08:51; Status DC Nitroglycerin (Nitroglycerin) 200 mcg STK-MED ONCE .ROUTE ; Start 10/07/16 at 08 :58; Stop 10/07/16 at 08:59; Status DC Bivalirudin (Angiomax) 250 mg STK-MED ONCE IV ; Start 10/07/16 at 08:59; Stop at 09:00; Status DC Heparin Sodium/ Sodium Chloride 1,000 unit 1X ONCE IART Last administered on 09:37; Start 10/07/16 at 09:15; Stop 10/07/16 at 09:22; Status DC Midazolam HCl (Versed) 3 mg 1X ONCE IV Last administered on 10/07/16 09:38; Start 10/07/16 at 09:15; Stop 10/07/16 at 09:22; Status DC Fentanyl Citrate (Fentanyl 5ml Vial) 100 mcg 1X ONCE IV Last administered on 09:38; Start 10/07/16 at 09:15; Stop 10/07/16 at 09:22; Status DC Iodixanol (Visipaque 320) 100 ml 1X ONCE IART Last administered on 10/07/16 09:37; Start 10/07/16 at 09:15; Stop 10/07/16 at 09:22; Status DC Bivalirudin (Angiomax) 250 mg 1X ONCE IV Last administered on 10/07/16 09:38 ; Start 10/07/16 at 09:15; Stop 10/07/16 at 09:22; Status DC Lidocaine HCl 15 ml 1X ONCE IJ Last administered on 10/07/16 09:37; Start at 09:15; Stop 10/07/16 at 09:22; Status DC Nitroglycerin (Nitroglycerin) 200 mcg 1X ONCE ICAR Last administered on 09:37; Start 10/07/16 at 09:15; Stop 10/07/16 at 09:22; Status DC Info (Do NOT chart on this entry -- for MONITORING) 1 each PRN DAILY PRN MC SEE COMMENTS; Start 10/07/16 at 09:30; Stop 10/09/16 at 09:29 Nitroglycerin (Nitroglycerin) 200 mcg STK-MED ONCE .ROUTE ; Start 10/07/16 at 09 :23; Stop 10/07/16 at 09:24; Status DC Prasugrel (Effient) 10 mg STK-MED ONCE .ROUTE ; Start 10/07/16 at 09:24; Stop at 09:25; Status DC Prasugrel (Effient) 10 mg 1X ONCE PO Last administered on 10/07/16t 09:30; Start 10/07/16 at 09:30; Stop 10/07/16 at 09:31; Status DC Aspirin (Ecotrin) 81 mg DAILYWBKFT PO ; Start 10/07/16 at 12:00; Stop 10/07/16 at 12:00; Status DC Docusate Sodium (Colace) 100 mg BID PO ; Start 10/07/16 at 12:00 Metoprolol Tartrate (Lopressor) 25 mg BID PO ; Start 10/07/16 at 12:00 Fish Oil (Fish Oil) 1,000 mg BID PO ; Start 10/07/16 at 12:00 Pantoprazole Sodium (Protonix) 40 mg DAILYAC PO ; Start 10/07/16 at 12:00 Atorvastatin Calcium (Lipitor) 10 mg QHS PO ; Start 10/07/16 at 21:00 Acetaminophen (Tylenol) 650 mg PRN Q6HRS PRN PO MILD PAIN / TEMP; Start at 12:00 Aspirin (Ecotrin) 81 mg DAILYWBKFT PO ; Start 10/08/16 at 08:00 Active Scripts Active Reported Pravastatin Sodium 40 Mg Tablet 1 Tab PO QHS Omeprazole 20 Mg Capsule. 1 Cap PO DAILY NITROGLYCERIN SubLingual (Nitroglycerin) 0.4 Mg Tab.subl 0.4 Mg SL PRN Q5MIN PRN Metoprolol Tartrate 25 Mg Tablet 1 Tab PO BID Ibuprofen 600 Mg Tablet 600 Mg PO BID Fish Oil (Ingram-3 Fatty Acids) 500 Mg Capsule. 1,000 Mg PO BID Colace (Docusate Sodium) 100 Mg Capsule 1 Cap PO BID Aspir-Low (Aspirin) 81 Mg Tablet. 1 Tab PO DAILY Acetaminophen 160 Mg/5 Ml Solution 2.5 Ml PO Q6HRS Vitals/I & O Vital Sign - Last 24 Hours 10/06/16 10/06/16 10/06/16 10/06/16 17:00 17:30 18:00 18:20 Temp 97.8 97.8 Pulse 82 64 Resp 16 20 13 B/P 144/106 143/91 Pulse Ox 97 97 94 98 O2 Delivery Room Air Room Air 10/06/16 10/06/16 10/06/16 10/06/16 19:00 19:15 19:30 19:45 Temp 98.0 98.0 Pulse 98 84 86 82 Resp 16 16 16 16 B/P 170/100 161/93 143/97 Pulse Ox 95 95 97 96 10/06/16 10/06/16 10/06/16 10/06/16 20:00 20:15 20:30 21:00 Pulse 90 98 110 97 Resp 16 16 B/P 139/88 135/88 133/76 131/88 Pulse Ox 95 96 95 96 10/06/16 10/06/16 10/06/16 10/06/16 21:15 21:30 21:45 22:00 Pulse 94 100 92 95 Resp 19 14 B/P 137/85 140/78 140/78 137/83 Pulse Ox 97 97 96 10/06/16 10/06/16 10/07/16 10/07/16 22:30 23:13 00:00 01:00 Temp 97.6 97.6 Pulse 92 87 97 71 Resp 16 19 B/P 150/85 121/75 134/81 124/81 Pulse Ox 98 96 97 10/07/16 10/07/16 10/07/16 10/07/16 02:00 02:19 02:28 02:58 Pulse 85 91 Resp 15 25 15 B/P 138/84 151/86 Pulse Ox 94 95 97 95 10/07/16 10/07/16 10/07/16 10/07/16 03:00 04:00 04:14 05:00 Temp 98.4 98.4 Pulse 88 84 82 Resp 20 18 14 B/P 137/8 116/72 110/71 Pulse Ox 95 95 93 O2 Delivery Room Air 10/07/16 10/07/16 10/07/16 10/07/16 06:07 07:00 08:00 08:00 Temp 98.1 98.1 Pulse 82 68 74 Resp 18 18 20 B/P 106/80 108/73 108/79 Pulse Ox 94 95 94 O2 Delivery Room Air Room Air Room Air 10/07/16 10/07/16 10/07/16 10/07/16 09:38 09:39 10:00 10:15 Pulse 76 60 68 Resp 14 20 16 B/P 119/85 118/76 Pulse Ox 97 98 95 97 O2 Delivery Nasal Cannula Nasal Cannula Room Air Room Air O2 Flow Rate 2.0 2.0 10/07/16 10/07/16 10/07/16 10/07/16 10:30 10:45 11:00 12:00 Temp 98.6 98.6 Pulse 78 62 60 69 Resp 20 16 16 14 B/P 126/54 112/76 111/76 114/76 Pulse Ox 95 97 96 97 O2 Delivery Room Air Room Air Room Air Room Air 10/07/16 10/07/16 10/07/16 12:00 12:16 13:00 Pulse 74 Resp 17 B/P 119/81 Pulse Ox 96 96 O2 Delivery Room Air Room Air Room Air O2 Flow Rate 2.0 Intake and Output 10/06/16 10/06/16 10/07/16 15:00 23:00 07:00 Intake Total 300 ml 96.55 ml Output Total 400 ml 600 ml Balance -100 ml -503.45 ml DELILAH MCWILLIAMS III DO Oct 07, 2016 13:15
[2016-10-07] MEDS: OMEGA-3 FATTY ACIDS/FISH OIL 1,000 MG CAPSULE. PO SCH ×2 (17:45→21:00)
[2016-10-07] MEDS: DOCUSATE SODIUM 100 MG CAPSULE PO SCH ×2 (17:46→21:00)
[2016-10-07] MEDS: PANTOPRAZOLE 40 MG TABLET. PO SCH (17:46)
[2016-10-07] MEDS ORDERED: ATORVASTATIN CALCIUM 10 MG TABLET. PO SCH (21:00)
[2016-10-08] VITALS (12 sets, daily range): BP systolic 98–140; BP diastolic 58–90
[2016-10-08 05:00] LABS: BASO # 0.1 x10^3/uL (0.0-0.2); BASO % 1 % (0-3); EOS % 2 % (0-3); HEMATOCRIT 37.3 % (39.0-53.0); HEMOGLOBIN 12.4 g/dL (13.0-17.5); LYMPH # 1.7 x10^3/uL (1.0-4.8); LYMPH % 24 % (24-48); MEAN CORPUSCULAR HEMOGLOBIN 31 pg (25-35); MEAN CORPUSCULAR HGB CONC 33 g/dL (31-37); MEAN CORPUSCULAR VOLUME 92 fL (79-100); MONO % 10 % (0-9); NEUT % 64 % (31-73); PLATELET COUNT 199 x10^3/uL (140-400); RED BLOOD COUNT 4.05 x10^6/uL (4.30-5.70); RED CELL DISTRIBUTION WIDTH 13.9 % (11.5-14.5); WHITE BLOOD COUNT 6.9 x10^3/uL (4.0-11.0)
[2016-10-08] MEDS: HYDROCODONE/APAP 5/325MG TABLET. PO PRN ×2 (05:11→11:02)
[2016-10-08 05:20] LABS: CALCIUM 9.1 mg/dL (8.5-10.1); CREATININE 1.2 mg/dL (0.7-1.3); GFR 65.5; POTASSIUM 4.2 mmol/L (3.5-5.1)
[2016-10-08] MEDS ORDERED: ASPIRIN ENTERIC COATED 81 MG TABLET.DR. PO SCH (08:00)
[2016-10-08] MEDS: METOPROLOL TART IMMED RELEASE 25 MG TABLET PO SCH (09:00)
[2016-10-08] MEDS: OMEGA-3 FATTY ACIDS/FISH OIL 1,000 MG CAPSULE. PO SCH (09:47)
[2016-10-08] MEDS: DOCUSATE SODIUM 100 MG CAPSULE PO SCH (09:48)
[2016-10-08] MEDS: PANTOPRAZOLE 40 MG TABLET. PO SCH (09:52)
--- NOTE | 2016-10-08 10:15 | PDOC ---
GADIEL RIDDLE SOCK LINING EXAMINER 10/08/16 1015: CARDIO Progress Notes Date and Time Date of Service 10/08/2016 Time of Evaluation 1014 Subjective Subjective: No Chest Pain, No shortness of breath, No Palpitations, No Dizziness Vitals Vitals Vital Signs Date Time Temp Pulse Resp B/P Pulse Ox O2 Delivery O2 Flow Rate FiO2 10/08/16 09:00 86 24 99/77 96 Room Air 10/08/16 08:00 98.1 98.1 10/08/16 04:00 2.0 Weight Weight [ ] Input and Output Intake and Output Intake and Output 10/08/16 07:00 Intake Total 1310 ml Output Total 2725 ml Balance -1415 ml Intake Oral 1310 ml Output Urine Total 2725 ml Laboratory Labs Laboratory Tests Test 10/08/16 04:13 White Blood Count 6.9x10^3/uL (4.0-11.0) Red Blood Count 4.05x10^6/uL (4.30-5.70) Hemoglobin 12.4g/dL (13.0-17.5) Hematocrit 37.3% (39.0-53.0) Mean Corpuscular Volume 92fL (79-100) Mean Corpuscular Hemoglobin 31pg (25-35) Mean Corpuscular Hemoglobin Concent 33g/dL (31-37) Red Cell Distribution Width 13.9% (11.5-14.5) Platelet Count 199x10^3/uL (140-400) Neutrophils (%) (Auto) 64% (31-73) Lymphocytes (%) (Auto) 24% (24-48) Monocytes (%) (Auto) 10% (0-9) Eosinophils (%) (Auto) 2% (0-3) Basophils (%) (Auto) 1% (0-3) Neutrophils # (Auto) 4.4x10^3uL (1.8-7.7) Lymphocytes # (Auto) 1.7x10^3/uL (1.0-4.8) Monocytes # (Auto) 0.7x10^3/uL (0.0-1.1) Eosinophils # (Auto) 0.1x10^3/uL (0.0-0.7) Basophils # (Auto) 0.1x10^3/uL (0.0-0.2) Sodium Level 142mmol/L (136-145) Potassium Level 4.2mmol/L (3.5-5.1) Chloride Level 103mmol/L (98-107) Carbon Dioxide Level 31mmol/L (21-32) Anion Gap 8 (6-14) Blood Urea Nitrogen 15mg/dL (8-26) Creatinine 1.2mg/dL (0.7-1.3) Estimated GFR (Cockcroft-Gault) 65.5 Glucose Level 96mg/dL (70-99) Calcium Level 9.1mg/dL (8.5-10.1) Physical Exam HEENT: Neck Supple W Full Motion Chest: Symmetric LUNGS: Clear to Auscultation Heart: S1S2, RRR, no murmurs, other (tele: SR) Abdomen: Soft N/T Extremities: No Edema, Other (RT bobbin fixer site c/d/i - no erythema, edema, ecchymosis or edema) Neurology: alert, oriented, follow commands Assessment Assessment 1. unstable angina cath yesterday without intervention DAPT due to clots continue BB and statin therapy 2. CAD with previous CABG 08/2016 see #1 3. HTN low normotensive decrease BB to 12.5 mg BID 4. HLD continue statin therapy 5. GERD PPI Have written scripts for discharge meds including metoprolol, clopidogrel, and atorvastatin. Advised to buy OTC aspirin. Follow up with cardiology practice of his choice - has been provided phone number of [facility] CHELSIE CORBETT MD 10/08/16 [id number]: CARDIO Progress Notes Plan Plan Pt. seen and examined. Agree with above JAVA PROJECT MANAGER note. No acute events overnight. Denies chest pain. normal cardiac exam. Meds adjusted. Continue asa, plavix, statin for nstemi. low dose b-lisset. outpt evaluation. 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 GADIEL RIDDLE APRN Oct 08, 2016 10:15 CHELSIE CORBETT MD Oct 08, 2016 22:53
[2016-10-08] MEDS ORDERED: CLOPIDOGREL BISULFATE 75 MG TABLET PO ONE (12:00)
[2016-10-08] MEDS ORDERED: CLOP75TA PO (13:16)
[2016-10-08] MEDS ORDERED: METO25TA4 PO (13:16)
[2016-10-08] MEDS ORDERED: ATOR10TA60 PO (13:16)
--- NOTE | 2016-10-08 18:29 | PDOC ---
PROGRESS NOTES Chief Complaint Chief Complaint Chief Complaint: - Unstable angina, s/p catheterization 10/07/16 - CAD with hx of CABG X4 in 08/2016 - Elevated troponin - HTN - Hyperlipidemia - GERD - Possible depression History of Present Illness History of Present Illness 46 year old male examined in ICU. Patient was drowsy, Had cardiac catheterization yesterday. Discussed with RN and patient. Patient denies chest pain currently. Reviewed labs , notes, VS Vitals Vitals Vital Signs Date Time Temp Pulse Resp B/P Pulse Ox O2 Delivery O2 Flow Rate FiO2 10/08/16 14:00 72 20 140/90 97 Room Air 10/08/16 08:00 98.1 98.1 10/08/16 04:00 2.0 Physical Exam General: Alert, Oriented X3, Cooperative, No acute distress Heart: Regular rate, Other (No rubs or gallops) Lungs: Clear, Other Abdomen: Normal bowel sounds, Soft, No tenderness Extremities: No clubbing, No cyanosis Skin: No rashes, No significant lesion Labs LABS Laboratory Tests Test 10/08/16 04:13 White Blood Count 6.9x10^3/uL (4.0-11.0) Red Blood Count 4.05x10^6/uL (4.30-5.70) Hemoglobin 12.4g/dL (13.0-17.5) Hematocrit 37.3% (39.0-53.0) Mean Corpuscular Volume 92fL (79-100) Mean Corpuscular Hemoglobin 31pg (25-35) Mean Corpuscular Hemoglobin Concent 33g/dL (31-37) Red Cell Distribution Width 13.9% (11.5-14.5) Platelet Count 199x10^3/uL (140-400) Neutrophils (%) (Auto) 64% (31-73) Lymphocytes (%) (Auto) 24% (24-48) Monocytes (%) (Auto) 10% (0-9) Eosinophils (%) (Auto) 2% (0-3) Basophils (%) (Auto) 1% (0-3) Neutrophils # (Auto) 4.4x10^3uL (1.8-7.7) Lymphocytes # (Auto) 1.7x10^3/uL (1.0-4.8) Monocytes # (Auto) 0.7x10^3/uL (0.0-1.1) Eosinophils # (Auto) 0.1x10^3/uL (0.0-0.7) Basophils # (Auto) 0.1x10^3/uL (0.0-0.2) Sodium Level 142mmol/L (136-145) Potassium Level 4.2mmol/L (3.5-5.1) Chloride Level 103mmol/L (98-107) Carbon Dioxide Level 31mmol/L (21-32) Anion Gap 8 (6-14) Blood Urea Nitrogen 15mg/dL (8-26) Creatinine 1.2mg/dL (0.7-1.3) Estimated GFR (Cockcroft-Gault) 65.5 Glucose Level 96mg/dL (70-99) Calcium Level 9.1mg/dL (8.5-10.1) Review of Systems Review of Systems co weakness co nausea Assessment and Plan Assessmemt and Plan Problems Medical Problems: (1) Unstable angina Status: Acute - Unstable angina, s/p catheterization 10/07/16 - CAD with hx of CABG X4 in 08/2016 - Elevated troponin - HTN - Hyperlipidemia - GERD - Possible depression Plan Serial enzymes lunchroom monitor PPI PTOT Recheck cbc , bmp Home meds Appreciate cardiology input Problems: Comment Review of Relevant I have reviewed the following items gilmer (where applicable) has been applied. Labs Laboratory Tests Test 10/07/16 03:20 10/07/16 10:00 10/08/16 04:13 White Blood Count 6.9x10^3/uL (4.0-11.0) 6.9x10^3/uL (4.0-11.0) Red Blood Count 3.76x10^6/uL (4.30-5.70) 4.05x10^6/uL (4.30-5.70) Hemoglobin 11.7g/dL (13.0-17.5) 12.4g/dL (13.0-17.5) Hematocrit 34.5% (39.0-53.0) 37.3% (39.0-53.0) Mean Corpuscular Volume 92fL (79-100) 92fL (79-100) Mean Corpuscular Hemoglobin 31pg (25-35) 31pg (25-35) Mean Corpuscular Hemoglobin Concent 34g/dL (31-37) 33g/dL (31-37) Red Cell Distribution Width 13.7% (11.5-14.5) 13.9% (11.5-14.5) Platelet Count 209x10^3/uL (140-400) 199x10^3/uL (140-400) Neutrophils (%) (Auto) 64% (31-73) 64% (31-73) Lymphocytes (%) (Auto) 25% (24-48) 24% (24-48) Monocytes (%) (Auto) 9% (0-9) 10% (0-9) Eosinophils (%) (Auto) 2% (0-3) 2% (0-3) Basophils (%) (Auto) 1% (0-3) 1% (0-3) Neutrophils # (Auto) 4.4x10^3uL (1.8-7.7) 4.4x10^3uL (1.8-7.7) Lymphocytes # (Auto) 1.7x10^3/uL (1.0-4.8) 1.7x10^3/uL (1.0-4.8) Monocytes # (Auto) 0.6x10^3/uL (0.0-1.1) 0.7x10^3/uL (0.0-1.1) Eosinophils # (Auto) 0.1x10^3/uL (0.0-0.7) 0.1x10^3/uL (0.0-0.7) Basophils # (Auto) 0.0x10^3/uL (0.0-0.2) 0.1x10^3/uL (0.0-0.2) Sodium Level 142mmol/L (136-145) 142mmol/L (136-145) Potassium Level 3.9mmol/L (3.5-5.1) 4.2mmol/L (3.5-5.1) Chloride Level 105mmol/L (98-107) 103mmol/L (98-107) Carbon Dioxide Level 28mmol/L (21-32) 31mmol/L (21-32) Anion Gap 9 (6-14) 8 (6-14) Blood Urea Nitrogen 15mg/dL (8-26) 15mg/dL (8-26) Creatinine 1.1mg/dL (0.7-1.3) 1.2mg/dL (0.7-1.3) Estimated GFR (Cockcroft-Gault) 72.4 65.5 Glucose Level 97mg/dL (70-99) 96mg/dL (70-99) Calcium Level 8.8mg/dL (8.5-10.1) 9.1mg/dL (8.5-10.1) Nasal Screen MRSA (PCR) Negative (Negative) Laboratory Tests Test 10/08/16 04:13 White Blood Count 6.9x10^3/uL (4.0-11.0) Red Blood Count 4.05x10^6/uL (4.30-5.70) Hemoglobin 12.4g/dL (13.0-17.5) Hematocrit 37.3% (39.0-53.0) Mean Corpuscular Volume 92fL (79-100) Mean Corpuscular Hemoglobin 31pg (25-35) Mean Corpuscular Hemoglobin Concent 33g/dL (31-37) Red Cell Distribution Width 13.9% (11.5-14.5) Platelet Count 199x10^3/uL (140-400) Neutrophils (%) (Auto) 64% (31-73) Lymphocytes (%) (Auto) 24% (24-48) Monocytes (%) (Auto) 10% (0-9) Eosinophils (%) (Auto) 2% (0-3) Basophils (%) (Auto) 1% (0-3) Neutrophils # (Auto) 4.4x10^3uL (1.8-7.7) Lymphocytes # (Auto) 1.7x10^3/uL (1.0-4.8) Monocytes # (Auto) 0.7x10^3/uL (0.0-1.1) Eosinophils # (Auto) 0.1x10^3/uL (0.0-0.7) Basophils # (Auto) 0.1x10^3/uL (0.0-0.2) Sodium Level 142mmol/L (136-145) Potassium Level 4.2mmol/L (3.5-5.1) Chloride Level 103mmol/L (98-107) Carbon Dioxide Level 31mmol/L (21-32) Anion Gap 8 (6-14) Blood Urea Nitrogen 15mg/dL (8-26) Creatinine 1.2mg/dL (0.7-1.3) Estimated GFR (Cockcroft-Gault) 65.5 Glucose Level 96mg/dL (70-99) Calcium Level 9.1mg/dL (8.5-10.1) Medications Current Medications Morphine Sulfate 2 mg 1X ONCE IV Last administered on 10/06/16 17:30; Start 10/06/16 at 17:30; Stop 10/06/16 at 17:31; Status DC Acetaminophen (Tylenol) 325 mg PRN Q6HRS PRN PO MILD PAIN / TEMP Last administered on 10/08/16 09:48; Start 10/06/16 at 17:30; Stop 10/08/16 at 14:49 ; Status DC Acetaminophen/ Hydrocodone Bitart (Lortab 5/325) 1 tab PRN Q6HRS PRN PO MODERATE TO SEVERE PAIN Last administered on 10/08/16 11:02; Start 10/06/16 at 17:30; Stop 10/08/16 at 14:49; Status DC Hydralazine HCl (Apresoline) 10 mg PRN Q4HRS PRN IVP ELEVATED BP, SEE COMMENTS ; Start 10/06/16 at 17:30; Stop 10/08/16 at 14:49; Status DC Ondansetron HCl (Zofran) 4 mg PRN Q8HRS PRN IV NAUSEA/VOMITING; Start 10/06/16 at 17:30; Stop 10/08/16 at 14:49; Status DC Albuterol Sulfate (Ventolin Neb Soln) 2.5 mg PRN Q4HRS PRN NEB SHORTNESS OF BREATH; Start 10/06/16 at 17:30; Stop 10/08/16 at 14:49; Status DC Nitroglycerin (Nitrostat) 0.4 mg PRN Q5MIN PRN SL CHEST PAIN; Start 10/06/16 at 17:45; Stop 10/08/16 at 14:49; Status DC Morphine Sulfate 2 mg PRN Q2HR PRN IV PAIN Last administered on 10/07/16 02:28 ; Start 10/06/16 at 17:45; Stop 10/08/16 at 14:49; Status DC Prasugrel 60 mg 60 mg 1X ONCE PO Last administered on 10/06/16t 19:53; Start 10/06/16 at 19:15; Stop 10/06/16 at 19:16; Status DC Nitroglycerin/ Dextrose 250 ml @ 0 mls/hr CONT PRN IV SEE I/O RECORD Last administered on 10/06/16t 19:43; Start 10/06/16 at 19:15; Stop 10/08/16 at 14:49 ; Status DC Heparin Sodium/ Sodium Chloride 1,500 ml @ As Directed STK-MED ONCE .ROUTE ; Start 10/07/16 at 07:20; Stop 10/07/16 at 07:21; Status DC Lidocaine HCl 20 ml STK-MED ONCE .ROUTE ; Start 10/07/16 at 07:20; Stop at 07:21; Status DC Iodixanol (Visipaque 320) 100 ml STK-MED ONCE .ROUTE ; Start 10/07/16 at 07:20; Stop 10/07/16 at 07:21; Status DC Midazolam HCl (Versed) 5 mg STK-MED ONCE .ROUTE ; Start 10/07/16 at 08:20; Stop 10/07/16 at 08:21; Status DC Fentanyl Citrate (Fentanyl 5ml Vial) 250 mcg STK-MED ONCE .ROUTE ; Start at 08:20; Stop 10/07/16 at 08:21; Status DC Iodixanol (Visipaque 320) 100 ml STK-MED ONCE .ROUTE ; Start 10/07/16 at 08:50; Stop 10/07/16 at 08:51; Status DC Nitroglycerin (Nitroglycerin) 200 mcg STK-MED ONCE .ROUTE ; Start 10/07/16 at 08 :58; Stop 10/07/16 at 08:59; Status DC Bivalirudin (Angiomax) 250 mg STK-MED ONCE IV ; Start 10/07/16 at 08:59; Stop at 09:00; Status DC Heparin Sodium/ Sodium Chloride 1,000 unit 1X ONCE IART Last administered on t 09:37; Start 10/07/16 at 09:15; Stop 10/07/16 at 09:22; Status DC Midazolam HCl (Versed) 3 mg 1X ONCE IV Last administered on 10/07/16 09:38; Start 10/07/16 at 09:15; Stop 10/07/16 at 09:22; Status DC Fentanyl Citrate (Fentanyl 5ml Vial) 100 mcg 1X ONCE IV Last administered on 09:38; Start 10/07/16 at 09:15; Stop 10/07/16 at 09:22; Status DC Iodixanol (Visipaque 320) 100 ml 1X ONCE IART Last administered on 10/07/16 09:37; Start 10/07/16 at 09:15; Stop 10/07/16 at 09:22; Status DC Bivalirudin (Angiomax) 250 mg 1X ONCE IV Last administered on 10/07/16 09:38 ; Start 10/07/16 at 09:15; Stop 10/07/16 at 09:22; Status DC Lidocaine HCl 15 ml 1X ONCE IJ Last administered on 10/07/16 09:37; Start at 09:15; Stop 10/07/16 at 09:22; Status DC Nitroglycerin (Nitroglycerin) 200 mcg 1X ONCE ICAR Last administered on 09:37; Start 10/07/16 at 09:15; Stop 10/07/16 at 09:22; Status DC Info (Do NOT chart on this entry -- for MONITORING) 1 each PRN DAILY PRN MC SEE COMMENTS; Start 10/07/16 at 09:30; Stop 10/08/16 at 14:49; Status DC Nitroglycerin (Nitroglycerin) 200 mcg STK-MED ONCE .ROUTE ; Start 10/07/16 at 09 :23; Stop 10/07/16 at 09:24; Status DC Prasugrel (Effient) 10 mg STK-MED ONCE .ROUTE ; Start 10/07/16 at 09:24; Stop at 09:25; Status DC Prasugrel (Effient) 10 mg 1X ONCE PO Last administered on 10/07/16 09:30; Start 10/07/16 at 09:30; Stop 10/07/16 at 09:31; Status DC Aspirin (Ecotrin) 81 mg DAILYWBKFT PO ; Start 10/07/16 at 12:00; Stop 10/07/16 at 12:00; Status DC Docusate Sodium (Colace) 100 mg BID PO Last administered on 10/08/16 09:48; Start 10/07/16 at 12:00; Stop 10/08/16 at 14:49; Status DC Metoprolol Tartrate (Lopressor) 25 mg BID PO Last administered on 10/07/16 20: 29; Start 10/07/16 at 12:00; Stop 10/08/16 at 11:17; Status DC Fish Oil (Fish Oil) 1,000 mg BID PO Last administered on 10/08/16 09:47; Start 10/07/16 at 12:00; Stop 10/08/16 at 14:49; Status DC Pantoprazole Sodium (Protonix) 40 mg DAILYAC PO Last administered on 10/08/16 09:52; Start 10/07/16 at 12:00; Stop 10/08/16 at 14:49; Status DC Atorvastatin Calcium (Lipitor) 10 mg QHS PO Last administered on 10/07/16 20: 28; Start 10/07/16 at 21:00; Stop 10/08/16 at 14:49; Status DC Acetaminophen (Tylenol) 650 mg PRN Q6HRS PRN PO MILD PAIN / TEMP; Start at 12:00; Stop 10/08/16 at 14:49; Status DC Aspirin (Ecotrin) 81 mg DAILYWBKFT PO Last administered on 10/08/16 09:48; Start 10/08/16 at 08:00; Stop 10/08/16 at 14:49; Status DC Metoprolol Tartrate (Lopressor) 12.5 mg BID PO ; Start 10/08/16 at 21:00; Stop 10/08/16 at 21:00; Status DC Clopidogrel Bisulfate (Plavix) 300 mg 1X ONCE PO Last administered on 13:59; Start 10/08/16 at 12:00; Stop 10/08/16 at 12:02; Status DC Clopidogrel Bisulfate (Plavix) 75 mg DAILYWBKFT PO ; Start 10/09/16 at 08:00; Stop 10/09/16 at 08:00; Status DC Active Scripts Active Clopidogrel (Clopidogrel Bisulfate) 75 Mg Tablet 75 Mg PO DAILY SIG: ONE TAB DAILY STARTING ON 10/19/2016 Metoprolol Tartrate 25 Mg Tablet 12.5 Mg PO BID SI/2 TAB TWICE DAILY Atorvastatin Calcium 10 Mg Tablet 10 Mg PO QHS Reported Omeprazole 20 Mg Capsule. 1 Cap PO DAILY NITROGLYCERIN SubLingual (Nitroglycerin) 0.4 Mg Tab.subl 0.4 Mg SL PRN Q5MIN PRN Fish Oil ([place]-3 Fatty Acids) 500 Mg Capsule. 1,000 Mg PO BID Colace (Docusate Sodium) 100 Mg Capsule 1 Cap PO BID Aspir-Low (Aspirin) 81 Mg Tablet. 1 Tab PO DAILY Vitals/I & O Vital Sign - Last 24 Hours 10/07/16 10/07/16 10/07/16 10/07/16 19:00 20:00 20:00 20:29 Temp 97.7 97.7 Pulse 110 94 93 Resp 20 20 B/P 120/89 112/69 112/74 Pulse Ox 96 96 O2 Delivery Room Air Room Air Room Air O2 Flow Rate 2.0 10/07/16 10/07/16 10/07/16 10/07/16 21:00 22:00 23:00 23:09 Pulse 84 66 70 Resp 20 16 18 18 B/P 119/73 110/67 98/67 Pulse Ox 96 96 97 98 O2 Delivery Room Air Room Air Room Air Room Air 10/07/16 10/07/16 10/08/16 10/08/16 23:59 23:59 01:00 02:00 Temp 97.9 97.9 Pulse 71 77 62 Resp 20 18 16 B/P 103/73 115/71 110/74 Pulse Ox 95 95 95 O2 Delivery Room Air Room Air Room Air Room Air O2 Flow Rate 2.0 10/08/16 10/08/16 10/08/16 10/08/16 03:00 04:00 04:00 05:00 Temp 97.8 97.8 Pulse 54 74 55 Resp 14 14 14 B/P 113/86 115/85 110/70 Pulse Ox 99 96 97 O2 Delivery Room Air Room Air Room Air Room Air O2 Flow Rate 2.0 10/08/16 10/08/16 10/08/16 10/08/16 05:11 06:00 07:00 08:00 Pulse 56 60 Resp 20 16 16 B/P 109/75 106/58 Pulse Ox 95 96 95 O2 Delivery Room Air Room Air Room Air Room Air 10/08/16 10/08/16 10/08/16 10/08/16 08:00 09:00 10:00 11:00 Temp 98.1 98.1 Pulse 62 86 87 83 Resp 12 18 B/P 98/60 99/77 101/72 125/82 Pulse Ox 95 96 98 98 O2 Delivery Room Air Room Air Room Air Room Air 10/08/16 10/08/16 10/08/16 10/08/16 11:02 12:00 12:00 14:00 Pulse 72 Resp 16 16 20 B/P 140/90 Pulse Ox 98 98 97 O2 Delivery Room Air Room Air Room Air Room Air Intake and Output 10/07/16 10/07/16 10/08/16 15:00 23:00 07:00 Intake Total 250 ml 720 ml 340 ml Output Total 925 ml 1800 ml Balance -675 ml -1080 ml 340 ml DELILAH MCWILLIAMS III DO Oct 08, 2016 18:29
[2016-10-08] MEDS ORDERED: METOPROLOL TART IMMED RELEASE 25 MG TABLET PO SCH (21:00)
[2016-10-09] MEDS ORDERED: CLOPIDOGREL BISULFATE 75 MG TABLET PO SCH (08:00)
--- NOTE | 2016-10-11 15:44 | CARD ---
APPROVED REPORT Procedure(s) performed: Coronary Angiography with grafts, Left Heart Catheterization PTCA with Balloon Angioplasty TO RPDA 271mL of Vispaque 19.7min of Fluoro 1681.34 mGy [id number] HISTORY The patient is a 46 year-old male with a history of : previous KS, previous CHF, coronary artery dise ase, tobacco history() : The patient is a former smoker, hypertension, previous CABG (The CABG date w as 08/22/2016), dyslipidemia, family history of premature CAD. INDICATION The indication(s) include : non-STEMI , 46-year-old gentleman presenting to the hospital in the [facility] of unstable angina with subsequent elevation in cardiac troponin to 2.5. After discussion of the r isks and benefits to brought to the [facility] for further evaluation... PROCEDURE NARRATIVE The patient was brought electively to the cardiac catheterization lab. A timeout was performed confi rming the patient's name, date of , procedure, and site of procedure. All necessary personnel w ere wearing the appropriate protective equipment and radiation monitor devices. After explaining the risks and benefits of the procedure and alternatives, informed consent was obtained. (See nursing no clifton for medications administered). The right groin was sterilely prepped and draped in the usual fas hion. The right groin was infiltrated with 15 mL of 2% lidocaine for subcutaneous anesthesia. A 6F sheath was inserted into the right femoral artery without difficulty. Right and left coronary angiog dalia was performed using a JL4 and JR4 catheters. HEMODYNAMICS: LVEDP 12 mm Hg No gradient on LV to aortic pullback. LEFT VENTRICULOGRAM: EF 60% Anterobasal: Normal. Anterolateral: Normal Apical: Normal Diaphragmatic: Minimal hypokinesis. Posterobasal: Normal CORONARY ANGIOGRAPHY: LM is a large caliber vessel with normal angiographic appearance. LAD is a large caliber with a patent proximal stent. The remainder of the vessel has mild luminal irr egularities of up to 40%. There is competitive flow noted in the distal vessel from the ALANNA graft. D1 is a moderate caliber vessel with a mid 80% stenosis. The distal vessel is seen to also fill via c ompetitive flow from a patent jump graft from the ALANNA. LCx is a moderate caliber co-dominant vessel with an ostial 50-60% stenosis. The distal vessel has mi ld luminal irregularities. OM1 is a moderate caliber vessel with normal angiographic appearance. There is a bypass graft attched to this vessel. RCA is a large caliber dominant vessel with a patent proximal stent, a mid 50% stenosis. The distal v essel has mild luminal iregularities. RPL is a moderate caliber vessel with mild luminal irregularities. RPDA is a moderate caliber vessel with a mid to distal 50-60% stenosis, not well visualized due to co mpetitive flow from the SVG to RCA. BYPASS GRAFTS: WATTS to LAD/D1 Y graft: No significant anastomotic stenosis but LAD limb appears to be atretic. The d iagonal limb is widely patent. SVG to OM1 - Patent. There is a large valve in the mid segment. SVG to RCA - Patent with a large mid to distal thrombotic burden. The distal vessel attaches to the P DA at a small caliber point in the vessel. INTERVENTIONAL TECHNIQUE: PCI OF THE RPDA Based upon the presenting symptoms, abnormal biomarkers and angiographic findings, it was felt that t he SVG to RCA graft thrombus was the likely culprit for the NSTEMI. Due to significant thrombus burde n of the SVG to RCA, the small caliber nature of the mid to distal PDA and lack of significant [place] RCA disease, it was felt that recanalization of the SVG to RCA graft would be of limited value due t o possible thrombus propagation and likely recurrent occlusion due to lack of flow since the [place] R CA did not have significant disease. Therefore, to help with possible distal RPDA disease, an angiopl asty was performed. Bivalirudin was used for anticoagulation. Through a 6Fr JR4 guide catheter, a 0.0 14'' Prowater wire was used to access the distal PDA. Next, balloon angioplasty was performed with a Trek 2.0/12 balloon and 2.25/15 balloon at a maximum of 12 sharon. Post-angioplasty, there was improveme nt in the thrombus burden and there was residual 30% stenosis but no significant improvement in the d egree of flow through the [place] vessel, likely due to persistent competitive flow from the near occl uded vein graft. Left ventricular end diastolic pressure was obtained with a pigtail catheter and pul lback was performed after left ventriculography. All catheter exchanges and advancements were perfor med over a guidewire. At case completion the right femoral sheath was removed and hemostasis was ach ieved with an Angioseal device. Conclusion 1. Normal Left ventricular filling pressure. 2. Normal left ventricular systolic function. EF 60% 3. Two vessel coronary artery disease with patent stents in the RCA and LAD. 4. 3/4 grafts patent with severe thrombotic burden in the SVG to RCA graft 5. POBA of the small caliber distal RPDA (culprit vessel for NSTEMI). Recommendations Aggressive Medical Therapy ASA 81mg daily Prasugrel 10mg daily
== END 2016-10-08 14:49 | DRG 251 ==
LOC: 1 WEST ICU 16:52 → EEVIPCON 16:52
PROVIDERS: ADMIT Internal Medicine; ATTEND Internal Medicine
PROC: 4A023N7 Measurement of Cardiac Sampling and Pressure, Left Heart, Percutaneous Approach (ICD-10-PCS; principal; 2016-10-07)
PROC: 02703ZZ Dilation of Coronary Artery, One Artery, Percutaneous Approach (ICD-10-PCS; 2016-10-07)
PROC: B2111ZZ Fluoroscopy of Multiple Coronary Arteries using Low Osmolar Contrast (ICD-10-PCS; 2016-10-07)
PROC: B2151ZZ Fluoroscopy of Left Heart using Low Osmolar Contrast (ICD-10-PCS; 2016-10-07)
PROC: 02C03ZZ Extirpation of Matter from Coronary Artery, One Artery, Percutaneous Approach (ICD-10-PCS; 2016-10-07)
DX: T82.868A Thrombosis due to vascular prosthetic devices, implants and grafts, initial encounter (principal); I25.110 Atherosclerotic heart disease of native coronary artery with unstable angina pectoris; Y83.9 Surgical procedure, unspecified as the cause of abnormal reaction of the patient, or of later complication, without mention of misadventure at the time of the procedure; E78.5 Hyperlipidemia, unspecified; I11.0 Hypertensive heart disease with heart failure; K21.9 Gastro-esophageal reflux disease without esophagitis; F32.9 Major depressive disorder, single episode, unspecified; Z82.49 Family history of ischemic heart disease and other diseases of the circulatory system; Z95.1 Presence of aortocoronary bypass graft; Z88.0 Allergy status to penicillin
CPT/HCPCS: 36415; 80048; 84484; 85027; 87641; 92920; 93005; 93459; 94250; 94760; C1725; C1769; C1771; C1887; C1892; G0269; J0583; J2250; J2270; J3010; J3490

== ENCOUNTER 2017-02-10 20:23 | Inpatient (IN) | payer OTHER ==
[~2017-02-10] VITALS: Ht 175.3 cm; Wt 76.2 kg
[~2017-02-10 20:23] MED LIST: ACET160S PO; ASPI81TA50 PO; ATOR10TA60 PO; CLOP75TA PO; DOCU-27 PO; IBUP-1007 PO; METO25TA4 PO; NITR0.4T6 SL; OMEG500C PO; OMEP20CA9 PO; PRAV40TA2 PO
[2017-02-10 20:43] LABS: BASO # 0.1 x10^3/uL (0.0-0.2); BASO % 1 % (0-3); EOS % 1 % (0-3); HEMATOCRIT 41.9 % (39.0-53.0); HEMOGLOBIN 14.1 g/dL (13.0-17.5); LYMPH # 2.1 x10^3/uL (1.0-4.8); LYMPH % 21 % (24-48); MEAN CORPUSCULAR HEMOGLOBIN 30 pg (25-35); MEAN CORPUSCULAR HGB CONC 34 g/dL (31-37); MEAN CORPUSCULAR VOLUME 89 fL (79-100); MONO % 6 % (0-9); NEUT % 72 % (31-73); PLATELET COUNT 211 x10^3/uL (140-400); RED CELL DISTRIBUTION WIDTH 13.8 % (11.5-14.5); WHITE BLOOD COUNT 10.4 x10^3/uL (4.0-11.0)
[2017-02-10] MEDS ORDERED: MORPHINE SULFATE 4 MG/ML DISP.SYRIN. IV/SQ PRN (20:45)
[2017-02-10 20:53] LABS: CALCIUM 9.4 mg/dL (8.5-10.1); CREATININE 1.1 mg/dL (0.7-1.3); GFR 72.4; POTASSIUM 3.7 mmol/L (3.5-5.1)
--- NOTE | 2017-02-10 21:06 | PHYS DOC ---
Past Medical History Past Medical History: CAD, GERD, High Cholesterol, Hypertension Past Surgical History: Coronary Bypass Surgery, Other Additional Past Surgical Histo: HERNIA REPAIR, QUADRUPLE BYPASS Alcohol Use: None Drug Use: None Adult General Chief Complaint Chief Complaint: CHEST PAIN HPI HPI Patient is a 46 year old male who presents with left-sided crampy chest pain that started around 6 PM while at rest and has been constant until now. States this feels exactly like prior episodes of heart related pain. He states he has slight dyspnea associated with the pain. His symptoms are unrelieved by nitroglycerin given at [facility]. He denies cough, leg pain or swelling, orthopnea, hemoptysis, palpitations, diaphoresis, lightheadedness, nausea or vomiting, abdominal pain, back pain. Review of Systems Review of Systems Constitutional: Denies fever or chills [] Eyes: Denies change in visual acuity, redness, or eye pain [] HENT: Denies nasal congestion or sore throat [] Respiratory: Denies cough [] Cardiovascular: No additional information not addressed in HPI [] GI: Denies abdominal pain, nausea, vomiting, bloody stools or diarrhea [] : Denies dysuria or hematuria [] Musculoskeletal: Denies back pain or joint pain [] Integument: Denies rash or skin lesions [] Neurologic: Denies headache, focal weakness or sensory changes [] Endocrine: Denies polyuria or polydipsia [] Current Medications Current Medications Current Medications Medications (Trade) Dose Ordered Sig/Melinda Start Time Stop Time Status Last Admin Dose Admin Morphine Sulfate 4 mg PRN Q15MIN PRN 02/10/17 20:45 02/11/17 20:44 02/10/17 20:43 4 MG Allergies Allergies Allergies Coded Allergies Type Severity Reaction Last Updated Verified Penicillins Allergy Intermediate 10/06/16 Yes Physical Exam Physical Exam Constitutional: Well developed, well nourished, no acute distress, non-toxic appearance. [] HENT: Normocephalic, atraumatic, bilateral external ears normal, oropharynx moist, nose normal. [] Eyes: PERRLA, EOMI. [] Neck: Normal range of motion, supple. [] Cardiovascular:Heart rate regular rhythm [] Lungs & Thorax: Bilateral breath sounds clear to auscultation. No chest wall tenderness [] Abdomen: Bowel sounds normal, soft, no tenderness. [] Skin: Warm, dry, no erythema, no rash. [] Back: Normal range of motion. [] Extremities: No tenderness, ROM intact, no edema. [] Neurologic: Alert and oriented X 3, normal motor function, normal sensory function, no focal deficits noted. [] Psychologic: Affect normal, judgement normal, mood normal. [] Current Patient Data Vital Signs Vital Signs Date Time Temp Pulse Resp B/P (MAP) Pulse Ox O2 Delivery O2 Flow Rate FiO2 02/10/17 20:43 Room Air 02/10/17 20:33 97.8 59 20 162/109 (126) 100 97.8 Lab Values Laboratory Tests Test 02/10/17 20:35 White Blood Count 10.4 x10^3/uL (4.0-11.0) Red Blood Count 4.70 x10^6/uL (4.30-5.70) Hemoglobin 14.1 g/dL (13.0-17.5) Hematocrit 41.9 % (39.0-53.0) Mean Corpuscular Volume 89 fL (79-100) Mean Corpuscular Hemoglobin 30 pg (25-35) Mean Corpuscular Hemoglobin Concent 34 g/dL (31-37) Red Cell Distribution Width 13.8 % (11.5-14.5) Platelet Count 211 x10^3/uL (140-400) Neutrophils (%) (Auto) 72 % (31-73) Lymphocytes (%) (Auto) 21 % (24-48) L Monocytes (%) (Auto) 6 % (0-9) Eosinophils (%) (Auto) 1 % (0-3) Basophils (%) (Auto) 1 % (0-3) Neutrophils # (Auto) 7.5 x10^3uL (1.8-7.7) Lymphocytes # (Auto) 2.1 x10^3/uL (1.0-4.8) Monocytes # (Auto) 0.6 x10^3/uL (0.0-1.1) Eosinophils # (Auto) 0.1 x10^3/uL (0.0-0.7) Basophils # (Auto) 0.1 x10^3/uL (0.0-0.2) Sodium Level 145 mmol/L (136-145) Potassium Level 3.7 mmol/L (3.5-5.1) Chloride Level 106 mmol/L (98-107) Carbon Dioxide Level 30 mmol/L (21-32) Anion Gap 9 (6-14) Blood Urea Nitrogen 18 mg/dL (8-26) Creatinine 1.1 mg/dL (0.7-1.3) Estimated GFR (Cockcroft-Gault) 72.4 Glucose Level 81 mg/dL (70-99) Calcium Level 9.4 mg/dL (8.5-10.1) Troponin I Quantitative 0.028 ng/mL (0.000-0.055) Laboratory Tests 02/10/17 20:35 Laboratory Tests 02/10/17 20:35 EKG EKG EKG as interpreted by me as normal sinus rhythm, rate 54, no ST-T changes, normal intervals, no ectopy Radiology/Procedures Radiology/Procedures Chest xray as interpreted by me with no acute cardiopulmonary disease process Course & Med Decision Making Course & Med Decision Making Pertinent Labs and Imaging studies reviewed. (See chart for details) HEART score is 4. Initial workup is unremarkable. Will admit for ACS rule out. Discussed case with Dr. Floyd, who will admit. Cardiology consult placed. Dragon Disclaimer Dragon Disclaimer This electronic medical record was generated, in whole or in part, using a voice recognition dictation system. Departure Departure Impression: Primary Impression: Unstable angina Disposition: ADMITTED INPATIENT Condition: STABLE Referrals: NO PCP (PCP) Adrian MOODY MD February 10, 2017 21:06
[2017-02-10] MEDS ORDERED: NITROGLYCERIN SUBLINGUAL 0.4 MG BOTTLE OF 25. SL PRN (21:30)
[2017-02-10] MEDS ORDERED: ONDANSETRON PF 4 MG/2 ML VIAL. IV PRN (21:30)
[2017-02-10] MEDS ORDERED: ACETAMINOPHEN 325 MG TABLET. PO PRN (21:30)
--- NOTE | 2017-02-10 22:53 | HP ---
ADMIT DATE: 02/11/2017 CHIEF COMPLAINT: Chest pain. HISTORY OF PRESENT ILLNESS: The patient is a pleasant 46-year-old white male who resides [facility] ____. Basically, he presents with chest pain. He has known coronary artery disease. He has had 4-vessel bypass and in fact just a few months ago, he went in and did a balloon angioplasty of one of his grafts. Once again, he presents with chest pain, he rates it 7/10, it is in the left side, it is crampy, which feels just like his previous coronary artery disease. I have discussed the case with the ER physician. We are going to admit the patient with consultation to Cardiology. PAST MEDICAL HISTORY: Four-vessel bypass, previous PTCA, previous methamphetamine abuse. ALLERGIES: None. FAMILY HISTORY: Coronary artery disease. SOCIAL HISTORY: Used to use meth, but he has not done in 8 years. He is incarcerated. MEDICATIONS: Reviewed, please refer to the MRAD. REVIEW OF SYSTEMS: GENERAL: No history of weight change, weakness or fevers. SKIN: No bruising, hair changes or rashes. EYES: No blurred, double or loss of vision. NOSE AND THROAT: No history of nosebleeds, hoarseness or sore throat. HEART: He complains of chest pain. LUNGS: Denies cough, hemoptysis, wheezing or shortness of breath. GASTROINTESTINAL: Denies changes in appetite, nausea, vomiting, diarrhea or constipation. GENITOURINARY: No history of frequency, urgency, hesitancy or nocturia. NEUROLOGIC: Denies history of numbness, tingling, tremor or weakness. PSYCHIATRIC: No history of panic, anxiety or depression. ENDOCRINE: No history of heat or cold intolerance, polyuria or polydipsia. EXTREMITIES: Denies muscle weakness, joint pain, pain on walking or stiffness. PHYSICAL EXAMINATION: VITAL SIGNS: Temperature afebrile, pulse 68, respirations 22, blood pressure 144/91. GENERAL: He is alert, cooperative. HEART: Normal S1, S2. LUNGS: Clear. ABDOMEN: Soft, positive bowel sounds. EXTREMITIES: No edema. SKIN: No rashes. He has got some tattoos. ENDOCRINE: No thyromegaly. LYMPHATICS: No cervical nodes. HEMATOPOIETIC: No bruising. HEENT: He has got very poor dentition, probably from the meth abuse. DIAGNOSTIC DATA: EKG shows sinus rhythm. LABORATORY DATA: Troponin is 0. ASSESSMENT AND PLAN: Chest pain with known coronary artery disease. The patient will be admitted to the telemetry unit. We will check serial enzymes, serial EKGs, echocardiogram, consult cardiology. Suspect he might need a stress test, daily aspirin. Continue other home medicines. PROGNOSIS: Guarded. DELILAH MCWILLIAMS DO DR: ARI/gemma JOB#: [id number] / [id number]
[2017-02-10 22:54] VITALS: BP 158/92
[2017-02-10] MEDS ORDERED: ASPI325T70 PO (23:18)
[2017-02-10] MEDS ORDERED: ASPI81TA2 PO (23:20)
[2017-02-10] MEDS ORDERED: METO25TA4 PO (23:34)
[2017-02-10 23:40] VITALS: BP 148/95
[2017-02-10] MEDS ORDERED: PRAV40TA2 PO (23:41)
[2017-02-11] MEDS: MORPHINE SULFATE 4 MG/ML DISP.SYRIN. IV PRN ×2 (03:12→08:38)
[2017-02-11 03:40] VITALS: BP 129/81
--- NOTE | 2017-02-11 07:30 | EKG ---
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
[2017-02-11 07:50] VITALS: BP 138/92
--- NOTE | 2017-02-11 08:06 | RAD ---
Chest, 2 views, 02/10/2017: History: Chest pain There has been a previous median sternotomy. A coronary artery stent overlies the left side of the heart. The heart size and pulmonary vascularity are normal. There is a calcified granuloma in the left upper lobe. No acute infiltrates are seen. There is no evidence of pleural fluid. IMPRESSION: 1. Coronary artery disease. 2. No acute cardiopulmonary abnormality is detected.
--- NOTE | 2017-02-11 09:54 | PDOC2 ---
ILEANA SHI BOILER MECHANIC 02/11/17 0954: CARDIAC CONSULT DATE OF CONSULT Date of Consult DATE: 02/11/17 TIME: 09:49 REASON FOR CONSULT Reason for Consult: Chest Pain REFERRING PHYSICIAN Referring Physician: Dr. Cerna SOURCE Source: Chart review, Patient HISTORY OF PRESENT ILLNESS HISTORY OF PRESENT ILLNESS This is a 46 yo male who presented with complaints of chest pain. Patient reports pain began yesterday afternoon while he was sitting down. Located in his left chest. Describes as pressure-like. Worsened with deep breathing. Improved with morphine. Presently, feels as if he is having a "Bro horse" in his left lateral chest. Significant cardiac history including multiple cardiac stents, followed by CABG in August of 2016 at [facility] in [place], [place]. Had non-STEMI in September of this year. Underwent heart cath as noted below. Routinely follows with ager tender in [place]. Reports compliance with medications including DAPT. PAST MEDICAL HISTORY Cardiovascular: CAD (s/p stents ), HTN, LA, Hyperlipidemia Pulmonary: No pertinent hx GI: GERD Hepatobiliary: No pertinent hx Psych: Anxiety, Depression Rheumatologic: No pertinent hx Infectious disease: No pertinent hx ENT: No pertinent hx Renal/: No pertinent hx Endocrine: No pertinent hx Dermatology: No pertinent hx PAST SURGICAL HISTORY Past Surgical History: CABG, Hernia Repair FAMILY HISTORY Family History: Coronary Artery Disease, Hypertension SOCIAL HISTORY Smoke: Quit (1 year ago) Drugs: Other (h/o drug use; quit 8 years ago) Lives: Roommate (incarcerated ) CURRENT MEDICATIONS CURRENT MEDICATIONS Current Medications Medications (Trade) Dose Ordered Sig/Melinda Route PRN Reason Start Time Stop Time Status Last Admin Dose Admin Morphine Sulfate 4 mg PRN Q15MIN PRN IV/SQ PAIN GREATER THAN 3/10 02/10/17 20:45 02/11/17 20:44 02/10/17 20:43 Ondansetron HCl (Zofran) 4 mg PRN Q8HRS PRN IV NAUSEA/VOMITING 02/10/17 21:30 02/11/17 21:29 02/11/17 08:32 Morphine Sulfate 4 mg PRN Q2HR PRN IV PAIN 02/10/17 21:30 02/11/17 21:29 02/11/17 08:38 ALLERGIES ALLERGIES: Coded Allergies: Penicillins (Verified Allergy, Intermediate, 10/06/16) ROS Review of System 14 point ROS conducted with pertinent positives noted above in HPI. PHYSICAL EXAM General: Alert, Oriented X3, Cooperative, No acute distress HEENT: Atraumatic, Mucous membr. moist/pink Lungs: Clear to auscultation, Normal air movement, Other (no chest tenderness ) Heart: Normal S1, Normal S2, No murmurs Abdomen: Soft, No tenderness Extremities: No edema, Normal pulses Skin: No breakdown, No significant lesion Neuro: Normal speech, Sensation intact Psych/Mental Status: Mental status NL, Mood NL MUSCULOSKELETAL: Full range of motion without pain VITALS VITALS Vital Signs Date Time Temp Pulse Resp B/P (MAP) Pulse Ox O2 Delivery O2 Flow Rate FiO2 02/11/17 08:38 16 Room Air 02/11/17 07:50 98.6 46 138/92 (107) 98 98.6 LABS Lab: Laboratory Tests Test 02/10/17 20:35 02/11/17 03:05 02/11/17 09:00 White Blood Count 10.4 x10^3/uL (4.0-11.0) Red Blood Count 4.70 x10^6/uL (4.30-5.70) Hemoglobin 14.1 g/dL (13.0-17.5) Hematocrit 41.9 % (39.0-53.0) Mean Corpuscular Volume 89 fL (79-100) Mean Corpuscular Hemoglobin 30 pg (25-35) Mean Corpuscular Hemoglobin Concent 34 g/dL (31-37) Red Cell Distribution Width 13.8 % (11.5-14.5) Platelet Count 211 x10^3/uL (140-400) Neutrophils (%) (Auto) 72 % (31-73) Lymphocytes (%) (Auto) 21 % (24-48) Monocytes (%) (Auto) 6 % (0-9) Eosinophils (%) (Auto) 1 % (0-3) Basophils (%) (Auto) 1 % (0-3) Neutrophils # (Auto) 7.5 x10^3uL (1.8-7.7) Lymphocytes # (Auto) 2.1 x10^3/uL (1.0-4.8) Monocytes # (Auto) 0.6 x10^3/uL (0.0-1.1) Eosinophils # (Auto) 0.1 x10^3/uL (0.0-0.7) Basophils # (Auto) 0.1 x10^3/uL (0.0-0.2) Sodium Level 145 mmol/L (136-145) Potassium Level 3.7 mmol/L (3.5-5.1) Chloride Level 106 mmol/L (98-107) Carbon Dioxide Level 30 mmol/L (21-32) Anion Gap 9 (6-14) Blood Urea Nitrogen 18 mg/dL (8-26) Creatinine 1.1 mg/dL (0.7-1.3) Estimated GFR (Cockcroft-Gault) 72.4 Glucose Level 81 mg/dL (70-99) Calcium Level 9.4 mg/dL (8.5-10.1) Troponin I Quantitative 0.028 ng/mL (0.000-0.055) 0.034 ng/mL (0.000-0.055) 0.036 ng/mL (0.000-0.055) HEART CATH HEART CATH Conclusion 1. Normal Left ventricular filling pressure. 2. Normal left ventricular systolic function. EF 60% 3. Two vessel coronary artery disease with patent stents in the RCA and LAD. 4. 3/4 grafts patent with severe thrombotic burden in the SVG to RCA graft 5. POBA of the small caliber distal RPDA (culprit vessel for NSTEMI). Recommendations Aggressive Medical Therapy ASA 81mg daily Prasugrel 10mg daily DATE: 10/11/16 1543 ASSESSMENT/PLAN ASSESSMENT/PLAN 1. Chest pain, atypical 2. Coronary artery disease; s/p CABG 09/06 3. Hypertension 4. Hyperlipidemia 5. GERD Recommendations AMI ruled out. Will check echo to assess LV function/presence of WMA Pain likely pleuritic in nature as it is worsened with a deep breath. Optimize medical therapy Check lipids Continue secondary prevention measures including DAPT. Problems: CHELSIE CORBETT MD 02/11/17 3928: CARDIAC CONSULT ALLERGIES ALLERGIES: Coded Allergies: Penicillins (Verified Allergy, Intermediate, 10/06/16) ASSESSMENT/PLAN ASSESSMENT/PLAN Pt. seen and examined. Agree with above FISHER HAND LINE Note. Known to us from his previous visit. Atypical chest pain. Negative enzymes. Echo with expected wall motion abnormalities. Will plan for medical management for now, patient prefers this as well. Can f/u with outpt ager tender and consider angiography if felt to be necessary. Problems: ILEANA SHI APRN February 11, 2017 09:54 CHELSIE CORBETT MD February 11, 2017 21:45
[2017-02-11] MEDS ORDERED: METO25TA4 PO (10:20)
[2017-02-11 11:58] VITALS: BP 131/88
[2017-02-11] MEDS: ASPIRIN CHEWABLE 81 MG TABLET. PO SCH (11:59)
[2017-02-11] MEDS: PANTOPRAZOLE 40 MG TABLET.DR. PO SCH (11:59)
[2017-02-11] MEDS: CLOPIDOGREL BISULFATE 75 MG TABLET PO SCH (11:59)
[2017-02-11] MEDS: METOPROLOL TART IMMED RELEASE 25 MG TABLET. PO SCH ×2 (12:01→21:00)
[2017-02-11 12:58] LABS: CHOLESTEROL/HDL RATIO 4.8
--- NOTE | 2017-02-11 15:37 | PDOC ---
PROGRESS NOTES Chief Complaint Chief Complaint CC: chest pain A/P 1. Chest pain, atypical : On IV morphine, ECHO pending, cardiology consulted. 2. Coronary artery disease; s/p CABG 09/06 3. Hypertension: stable. 4. Hyperlipidemia 5. GERD History of Present Illness History of Present Illness chest pain left, 03/01- persistent, pleuritic Vitals Vitals Vital Signs Date Time Temp Pulse Resp B/P (MAP) Pulse Ox O2 Delivery O2 Flow Rate FiO2 02/11/17 12:01 74 138/92 02/11/17 11:58 98.4 19 97 Room Air 98.4 Physical Exam General: Alert, Oriented X3, Cooperative, No acute distress Heart: Normal S1, Normal S2, No murmurs Lungs: Clear, Other Abdomen: Soft, No tenderness Extremities: No edema, Normal pulses Skin: No breakdown, No significant lesion Labs LABS Laboratory Tests Test 02/10/17 20:35 02/11/17 03:05 02/11/17 09:00 White Blood Count 10.4 x10^3/uL (4.0-11.0) Red Blood Count 4.70 x10^6/uL (4.30-5.70) Hemoglobin 14.1 g/dL (13.0-17.5) Hematocrit 41.9 % (39.0-53.0) Mean Corpuscular Volume 89 fL (79-100) Mean Corpuscular Hemoglobin 30 pg (25-35) Mean Corpuscular Hemoglobin Concent 34 g/dL (31-37) Red Cell Distribution Width 13.8 % (11.5-14.5) Platelet Count 211 x10^3/uL (140-400) Neutrophils (%) (Auto) 72 % (31-73) Lymphocytes (%) (Auto) 21 % (24-48) Monocytes (%) (Auto) 6 % (0-9) Eosinophils (%) (Auto) 1 % (0-3) Basophils (%) (Auto) 1 % (0-3) Neutrophils # (Auto) 7.5 x10^3uL (1.8-7.7) Lymphocytes # (Auto) 2.1 x10^3/uL (1.0-4.8) Monocytes # (Auto) 0.6 x10^3/uL (0.0-1.1) Eosinophils # (Auto) 0.1 x10^3/uL (0.0-0.7) Basophils # (Auto) 0.1 x10^3/uL (0.0-0.2) Sodium Level 145 mmol/L (136-145) Potassium Level 3.7 mmol/L (3.5-5.1) Chloride Level 106 mmol/L (98-107) Carbon Dioxide Level 30 mmol/L (21-32) Anion Gap 9 (6-14) Blood Urea Nitrogen 18 mg/dL (8-26) Creatinine 1.1 mg/dL (0.7-1.3) Estimated GFR (Cockcroft-Gault) 72.4 Glucose Level 81 mg/dL (70-99) Calcium Level 9.4 mg/dL (8.5-10.1) Troponin I Quantitative 0.028 ng/mL (0.000-0.055) 0.034 ng/mL (0.000-0.055) 0.036 ng/mL (0.000-0.055) Triglycerides Level 137 mg/dL (0-150) Cholesterol Level 157 mg/dL (0-200) LDL Cholesterol, Calculated 97 mg/dL (0-100) VLDL Cholesterol, Calculated 27 mg/dL (0-40) Non-HDL Cholesterol Calculated 124 mg/dL (0-129) HDL Cholesterol 33 mg/dL (40-60) Cholesterol/HDL Ratio 4.8 Assessment and Plan Assessmemt and Plan Problems Medical Problems: (1) Unstable angina Status: Acute Problems: Comment Review of Relevant I have reviewed the following items gilmer (where applicable) has been applied. Labs Laboratory Tests Test 02/10/17 20:35 02/11/17 03:05 02/11/17 09:00 White Blood Count 10.4 x10^3/uL (4.0-11.0) Red Blood Count 4.70 x10^6/uL (4.30-5.70) Hemoglobin 14.1 g/dL (13.0-17.5) Hematocrit 41.9 % (39.0-53.0) Mean Corpuscular Volume 89 fL (79-100) Mean Corpuscular Hemoglobin 30 pg (25-35) Mean Corpuscular Hemoglobin Concent 34 g/dL (31-37) Red Cell Distribution Width 13.8 % (11.5-14.5) Platelet Count 211 x10^3/uL (140-400) Neutrophils (%) (Auto) 72 % (31-73) Lymphocytes (%) (Auto) 21 % (24-48) Monocytes (%) (Auto) 6 % (0-9) Eosinophils (%) (Auto) 1 % (0-3) Basophils (%) (Auto) 1 % (0-3) Neutrophils # (Auto) 7.5 x10^3uL (1.8-7.7) Lymphocytes # (Auto) 2.1 x10^3/uL (1.0-4.8) Monocytes # (Auto) 0.6 x10^3/uL (0.0-1.1) Eosinophils # (Auto) 0.1 x10^3/uL (0.0-0.7) Basophils # (Auto) 0.1 x10^3/uL (0.0-0.2) Sodium Level 145 mmol/L (136-145) Potassium Level 3.7 mmol/L (3.5-5.1) Chloride Level 106 mmol/L (98-107) Carbon Dioxide Level 30 mmol/L (21-32) Anion Gap 9 (6-14) Blood Urea Nitrogen 18 mg/dL (8-26) Creatinine 1.1 mg/dL (0.7-1.3) Estimated GFR (Cockcroft-Gault) 72.4 Glucose Level 81 mg/dL (70-99) Calcium Level 9.4 mg/dL (8.5-10.1) Troponin I Quantitative 0.028 ng/mL (0.000-0.055) 0.034 ng/mL (0.000-0.055) 0.036 ng/mL (0.000-0.055) Triglycerides Level 137 mg/dL (0-150) Cholesterol Level 157 mg/dL (0-200) LDL Cholesterol, Calculated 97 mg/dL (0-100) VLDL Cholesterol, Calculated 27 mg/dL (0-40) Non-HDL Cholesterol Calculated 124 mg/dL (0-129) HDL Cholesterol 33 mg/dL (40-60) Cholesterol/HDL Ratio 4.8 Laboratory Tests Test 02/10/17 20:35 02/11/17 03:05 02/11/17 09:00 White Blood Count 10.4 x10^3/uL (4.0-11.0) Red Blood Count 4.70 x10^6/uL (4.30-5.70) Hemoglobin 14.1 g/dL (13.0-17.5) Hematocrit 41.9 % (39.0-53.0) Mean Corpuscular Volume 89 fL (79-100) Mean Corpuscular Hemoglobin 30 pg (25-35) Mean Corpuscular Hemoglobin Concent 34 g/dL (31-37) Red Cell Distribution Width 13.8 % (11.5-14.5) Platelet Count 211 x10^3/uL (140-400) Neutrophils (%) (Auto) 72 % (31-73) Lymphocytes (%) (Auto) 21 % (24-48) Monocytes (%) (Auto) 6 % (0-9) Eosinophils (%) (Auto) 1 % (0-3) Basophils (%) (Auto) 1 % (0-3) Neutrophils # (Auto) 7.5 x10^3uL (1.8-7.7) Lymphocytes # (Auto) 2.1 x10^3/uL (1.0-4.8) Monocytes # (Auto) 0.6 x10^3/uL (0.0-1.1) Eosinophils # (Auto) 0.1 x10^3/uL (0.0-0.7) Basophils # (Auto) 0.1 x10^3/uL (0.0-0.2) Sodium Level 145 mmol/L (136-145) Potassium Level 3.7 mmol/L (3.5-5.1) Chloride Level 106 mmol/L (98-107) Carbon Dioxide Level 30 mmol/L (21-32) Anion Gap 9 (6-14) Blood Urea Nitrogen 18 mg/dL (8-26) Creatinine 1.1 mg/dL (0.7-1.3) Estimated GFR (Cockcroft-Gault) 72.4 Glucose Level 81 mg/dL (70-99) Calcium Level 9.4 mg/dL (8.5-10.1) Troponin I Quantitative 0.028 ng/mL (0.000-0.055) 0.034 ng/mL (0.000-0.055) 0.036 ng/mL (0.000-0.055) Triglycerides Level 137 mg/dL (0-150) Cholesterol Level 157 mg/dL (0-200) LDL Cholesterol, Calculated 97 mg/dL (0-100) VLDL Cholesterol, Calculated 27 mg/dL (0-40) Non-HDL Cholesterol Calculated 124 mg/dL (0-129) HDL Cholesterol 33 mg/dL (40-60) Cholesterol/HDL Ratio 4.8 Medications Current Medications Morphine Sulfate 4 mg PRN Q15MIN PRN IV/SQ PAIN GREATER THAN 3/10 Last administered on 02/10/17 20:43; Start 02/10/17 at 20:45; Stop 02/11/17 at 20:44 Ondansetron HCl (Zofran) 4 mg PRN Q8HRS PRN IV NAUSEA/VOMITING Last administered on 02/11/17 08:32; Start 02/10/17 at 21:30; Stop 02/11/17 at 21:29 Morphine Sulfate 4 mg PRN Q2HR PRN IV PAIN Last administered on 02/11/17 08:38 ; Start 02/10/17 at 21:30; Stop 02/11/17 at 21:29 Acetaminophen (Tylenol) 650 mg PRN Q4HRS PRN PO FEVER Last administered on 02/11 12:00; Start 02/10/17 at 21:30; Stop 02/11/17 at 21:29 Nitroglycerin (Nitrostat) 0.4 mg PRN Q5MIN PRN SL CHEST PAIN; Start 02/10/17 at 21:30; Stop 02/11/17 at 21:29 Aspirin (Children'S Aspirin) 81 mg DAILYWBKFT PO Last administered on 11:59; Start 02/11/17 at 11:00 Atorvastatin Calcium (Lipitor) 10 mg QHS PO ; Start 02/11/17 at 21:00 Clopidogrel Bisulfate (Plavix) 75 mg DAILYWBKFT PO Last administered on 11:59; Start 02/11/17 at 11:00 Pantoprazole Sodium (Protonix) 40 mg DAILYAC PO Last administered on 02/11/17 11:59; Start 02/11/17 at 11:00 Metoprolol Tartrate (Lopressor) 12.5 mg BID PO Last administered on 02/11/17 12:01; Start 02/11/17 at 11:00 Lisinopril (Prinivil) 5 mg DAILY PO ; Start 02/11/17 at 13:00 Active Scripts Active Metoprolol Tartrate 25 Mg Tablet 0.5 Tab PO BID Clopidogrel (Clopidogrel Bisulfate) 75 Mg Tablet 75 Mg PO DAILY SIG: ONE TAB DAILY STARTING ON 10/19/2016 Atorvastatin Calcium 10 Mg Tablet 10 Mg PO QHS Reported Pravastatin Sodium 40 Mg Tablet 1 Tab PO DAILY Metoprolol Tartrate 25 Mg Tablet 1.5 Tab PO BID Aspirin 81 Mg Tab.chew 1 Tab PO DAILY Omeprazole 20 Mg Capsule.dr 1 Cap PO DAILY NITROGLYCERIN SubLingual (Nitroglycerin) 0.4 Mg Tab.subl 0.4 Mg SL PRN Q5MIN PRN Colace (Docusate Sodium) 100 Mg Capsule 1 Cap PO BID Vitals/I & O Vital Sign - Last 24 Hours 02/10/17 02/10/17 02/10/17 02/10/17 20:33 20:43 20:44 21:01 Temp 97.8 97.8 Pulse 59 57 48 Resp 20 B/P (MAP) 162/109 (126) 176/100 (125) 152/102 (119) Pulse Ox 100 99 O2 Delivery Room Air Room Air Room Air 02/10/17 02/10/17 02/10/17 02/10/17 21:14 21:44 22:00 22:00 Pulse 47 46 Resp 14 12 18 B/P (MAP) 157/98 (117) 152/88 (109) Pulse Ox 97 96 O2 Delivery Room Air Room Air Room Air Room Air 02/10/17 02/10/17 02/11/17 02/11/17 22:54 23:40 03:12 03:40 Temp 97.9 98.6 98.6 97.9 98.6 98.6 Pulse 52 86 52 Resp 17 15 20 13 B/P (MAP) 158/92 (114) 148/95 (112) 129/81 (97) Pulse Ox 100 98 96 96 O2 Delivery Room Air Room Air Room Air Room Air 02/11/17 02/11/17 02/11/17 02/11/17 03:42 07:50 08:38 09:10 Temp 98.6 98.6 Pulse 46 Resp 18 17 16 B/P (MAP) 138/92 (107) Pulse Ox 98 98 O2 Delivery Room Air Room Air Room Air 02/11/17 02/11/17 11:58 12:01 Temp 98.4 98.4 Pulse 77 74 Resp 19 B/P (MAP) 131/88 (102) 138/92 Pulse Ox 97 O2 Delivery Room Air Intake and Output 02/10/17 02/10/17 02/11/17 15:00 23:00 07:00 Intake Total 350 ml Balance 350 ml NIKKI LIVE MD February 11, 2017 15:37
[2017-02-11] MEDS ORDERED: HYDROcodone/APAP 10/325 1 TAB TABLET PO PRN (15:45)
[2017-02-11 15:59] VITALS: BP 136/91
--- NOTE | 2017-02-11 16:57 | CARD ---
APPROVED REPORT EXAM: Two-dimensional and M-mode echocardiogram with Doppler and color Doppler. Other Information Quality : GoodHR: 83bpm Rhythm : NSR INDICATION Cardiac Disease: CAD Chest Pain RISK FACTORS Hypertension 2D DIMENSIONS RVDd2.2 (2.9-3.5cm)Left Atrium(2D)3.0 (1.6-4.0cm) IVSd1.5 (0.7-1.1cm)Aortic Root(2D)2.6 (2.0-3.7cm) LVDd4.9 (3.9-5.9cm)LVOT Diameter2.4 (1.8-2.4cm) PWd1.5 (0.7-1.1cm)LVDs3.0 (2.5-4.0cm) FS (%) 38.4 %SV77.4 ml LVEF(%)68.5 (>50%) Aortic Valve AoV Peak Dez.135.3cm/sAoV VTI22.9cm AO Peak GR.7.3mmHgLVOT Peak Dez.108.8cm/s AO Mean GR.4mmHgAVA (VMAX)3.70cm2 Mitral Valve MV E Bgwgnabu32.2cm/sMV E Peak Gr.2mmHg MV DECEL [id number] A Byyfwnww42.5cm/s MV E Mean Gr.1mmHgE/A Ratio1.2 MV A [id number] Pulmonary Valve PV Peak Bpmmvcax810.5cm/s Pulmonary Vein S1 Chtboked30.8cm/sD2 Vzugwxht77.1cm/s PVa [id number] LEFT VENTRICLE The left ventricle is normal size. There is moderate concentric left ventricular hypertrophy. The lef t ventricular systolic function is normal and the ejection fraction is within normal range. The Eject ion Fraction is 55-60%. There is moderate hypokinesis in the basal,mid and apical segments of the inf erior wall. The left ventricular diastolic function and filling is normal for age. No left ventricle thrombus noted on this study. RIGHT VENTRICLE The right ventricle is normal size. There is normal right ventricular wall thickness. The right ventr icular systolic function is normal. ATRIA The left atrium size is normal. The right atrium size is normal. The interatrial septum is intact wit h no evidence for an atrial septal defect or patent foramen ovale as noted on 2-D or Doppler imaging. AORTIC VALVE The aortic valve is trileaflet. Doppler and Color Flow revealed no significant aortic regurgitation. There is no significant aortic valvular stenosis. MITRAL VALVE The mitral valve is normal in structure and function. There is no evidence of mitral valve prolapse. There is no mitral valve stenosis. Doppler and Color Flow revealed no mitral valve regurgitation note d. TRICUSPID VALVE Doppler and Color Flow revealed no tricuspid valve regurgitation noted. Unable to determine pulmonary artery pressure at exam time. PULMONIC VALVE Doppler and Color Flow revealed no pulmonic valvular regurgitation. There is no pulmonic valvular jeanna nosis. GREAT VESSELS The aortic root is normal in size. The ascending aorta is normal in size. The pulmonary artery is nor mal. The IVC is normal in size and collapses >50% with inspiration. PERICARDIAL EFFUSION There is no evidence of significant pericardial effusion. Critical Notification Critical Value: No <Conclusion> The left ventricular systolic function is normal and the ejection fraction is within normal range. Th e Ejection Fraction is 55-60%. There is moderate hypokinesis in the basal,mid and apical segments of the inferior wall.
[2017-02-11] MEDS ORDERED: ALPRAZolam 0.25 MG TABLET PO ONE (17:00)
[2017-02-11] MEDS: LISINOPRIL 5 MG TABLET. PO SCH (17:27)
[2017-02-11 19:55] VITALS: BP 137/89
[2017-02-11] MEDS ORDERED: ATORVASTATIN CALCIUM 10 MG TABLET. PO SCH (21:00)
[2017-02-11 22:39] VITALS: BP 116/82
[2017-02-12] MEDS: ALPRAZolam 0.25 MG TABLET PO PRN ×3 (00:35→15:11)
[2017-02-12 03:32] VITALS: BP 124/90
[2017-02-12 07:00] VITALS: BP 127/95
[2017-02-12] MEDS: CLOPIDOGREL BISULFATE 75 MG TABLET PO SCH (09:08)
[2017-02-12] MEDS: PANTOPRAZOLE 40 MG TABLET.DR. PO SCH (09:08)
[2017-02-12] MEDS: ASPIRIN CHEWABLE 81 MG TABLET. PO SCH (09:08)
[2017-02-12] MEDS: LISINOPRIL 5 MG TABLET. PO SCH (09:08)
[2017-02-12] MEDS: METOPROLOL TART IMMED RELEASE 25 MG TABLET. PO SCH (10:19)
[2017-02-12 11:00] VITALS: BP 126/94
[2017-02-12 15:15] VITALS: BP 120/78
== END 2017-02-12 16:05 | DRG 303 ==
LOC: ER 20:23 → EEVIPCON 20:23 → 2 SOUTH 21:00
PROVIDERS: ADMIT Internal Medicine; ATTEND Internal Medicine
DX: I25.110 Atherosclerotic heart disease of native coronary artery with unstable angina pectoris (principal); R07.89 Other chest pain; E78.00 Pure hypercholesterolemia, unspecified; E78.5 Hyperlipidemia, unspecified; F32.9 Major depressive disorder, single episode, unspecified; I10 Essential (primary) hypertension; K21.9 Gastro-esophageal reflux disease without esophagitis; Z82.49 Family history of ischemic heart disease and other diseases of the circulatory system; Z95.5 Presence of coronary angioplasty implant and graft; Z95.1 Presence of aortocoronary bypass graft; I25.2 Old myocardial infarction; Z88.0 Allergy status to penicillin
CPT/HCPCS: 36415; 71020; 80048; 80061; 82947; 84484; 85027; 93005; 93306; 96374; J2270; J2405; 99285-25